=== PATIENT | male | born 1990 | race Caucasian/White ===

== ENCOUNTER 2018-01-14 08:27 | Observation (INO) | payer BC, SELFPAY ==
[2018-01-14] VITALS (13 sets, daily range): BP systolic 101–137; BP diastolic 60–94; PULSE 62–103; RESP 16–24; TEMP 35.6–36.8; O2SAT 95–100; BMI 20.7; BMI 21.8
--- NOTE | 2018-01-14 08:35 | CT_ITS ---
STUDY: CT ABDOMEN AND PELVIS WITHOUT CONTRAST REASON FOR EXAM: Male, 27 years old. RIGHT FLANK RADIATION DOSAGE (If Supplied By Facility): CTDIvol = ( 6.31 ) mGy, DLP = ( 302.88 ) mGycm TECHNIQUE: Transaxial images were obtained from the dome of the diaphragm to the symphysis pubis without oral contrast, and without intravenous contrast. Sagittal and coronal images were reconstructed. Individualized dose optimization techniques were used for this CT. COMPARISON: None. FINDINGS: The visualized lung bases are unremarkable. The visualized portions of the heart are within normal limits. Normal liver. Normal gallbladder and extrahepatic biliary system. Normal spleen. Normal pancreas. Normal bilateral adrenal glands. There is mild hydroureteronephrosis. There is a 4 mm calculus at the distal ureter adjacent to the bladder (axial image #144 series 2) Normal left kidney. Normal visualized stomach. Normal small intestine. Normal colon. The appendix is visualized and appears normal. Normal abdominal aorta. Normal inferior vena cava. Normal retroperitoneum. Normal urinary bladder. Normal abdominal wall. Normal osseous structures. CT/Abdomen/Pelvis without Cont IMPRESSION: 4 mm distal ureteral calculus with mild hydroureteronephrosis on the right. Electronically Signed: Christian Bernabe MD at 9:22 EDT Tel , Service support ,
--- NOTE | 2018-01-14 08:38 | ED.VISSUMM ---
- ER Visit Summary Date of Service: 01/14/18 Chief Complaint: Severe acute right lower back pain radiating anteriorly to the groin History of Present Illness: The patient is a 27 M who was awakened from sleep with acute severe colicky right lower back pain radiating anteriorly to the groin. He complains of minimal testicular pain on the right. He does report nausea and vomiting. He denies dysuria, frequency, urgency or hematuria. He has no history of renal ureterolithiasis. Family history is unknown. There is no history of trauma. He denies fever, chills or night sweats. He has no other complaints. Physical Examination: Vital signs remarkable for slight elevation in blood pressure of 127/75. Patient appears in obvious discomfort. He is slightly pale. Head is atraumatic normocephalic. Pupils are equal round reactive. Extraocular muscles are intact. TMs are pearly white with landmarks noted. Nares patent with no drainage. Posterior pharynx without erythema or exudate. Uvula is midline. There is no dysphonia or dysphasia. Trachea is midline. There is no stridor with auscultation of the neck. Heart is regular without murmur, gallop or rub. S1 and S2 are normal. Lungs are clear to auscultation with good movement of air bilaterally. Abdomen is soft nontender bowel sounds are diminished. There is minimal right CVA tenderness. There is no inguinal lymphadenopathy or hernia. Circumcised with no penile lesion or discharge. No testicular pain or epididymal pain. Testes are descended bilaterally. There is no skin rash or lesions noted. He is alert and oriented ?3 with a nonfocal neurologic exam. Test Results: CT of the abdomen pelvis without contrast reveals a 5 mm right renal calculus and a 5 mm right ureteral calculus proximal mid third with hydroureter hydronephrosis. CBC unremarkable. BMP unremarkable. Urinalysis reveals microscopic hematuria. There is no pyuria and nitrites negative. There is 1+ bacteria. Emergency Department Course and Treatment: IV was established he was treated with 30 mg of Toradol IV push and 4 mg of Zofran IV push. UA was obtained as well as blood work since she has no past medical history and no physician. This was obtained to rule out other causes other than obstructing stone and to evaluate his white count and kidney function. CT of the abdomen and pelvis without contrast was ordered to evaluate for ureterolithiasis with obstruction. Treatment Plan: Patient has received multiple doses of IV morphine. At 1205 when he was reassessed again he was diaphoretic in obvious discomfort. Urologist was paged and will be admitted Disposition: Admit [facility] Impression: 1. Severe pain secondary to obstructing right ureteral stone with hydroureter and hydronephrosis This note was generated with [employer] dictation software. It may contain incorrect words, spelling, and punctuation that were not noted in review of the chart prior to signing ED Disposition - Plan for ED Patient: Chief Complaint: Abd Pain
[2018-01-14] MEDS: 0.9% Normal Saline 1,000 ML 250 ML IV ×2 (08:42→12:50)
[2018-01-14] MEDS: Ketorolac 30 MG/ML Syringe IV (08:43)
[2018-01-14 08:48] LABS: Absolute Lymphocyte Count 4.17 X10^3/ul (0.83-4.51); Absolute Neutrophil Count 4.7 X10^3/uL (2.0-7.7); Basophil# 0.03 X10^3/uL; Basophil% 0.3 % (0-1); Eosinophil# 0.16 X10^3/uL; Eosinophils% 1.6 % (0-5); Hematocrit 42.5 % (40-54); Lymphocyte # 4.17 X10^3/ul (4.0); Lymphocyte % 42.2 % (19-41); Mean Corp Hgb Conc 35.3 g/gl (32-36); Mean Corpuscular Hgb 30.9 pg (27.0-32.0); Mean Corpuscular Volume 87.6 fL (80-94); Mean Platelet Vol. 10.6 fl (6.2-12.0); Monocyte# 0.78 X10^3/uL; Monocyte% 7.9 % (0-10); Neutrophil # 4.71 X10^3/uL (2.7-7.7); Neutrophil % 47.8 % (47-70); Platelet Count 204 K/mm3 (150-450); RBC Distribution Width CV 11.9 % (11.6-14.6); RBC Distribution Width SD 37.8 fl (35.1-43.9); Red Blood Count 4.85 M/mm3 (4.6-6.2); White Blood Count 9.9 K/mm3 (4.4-11.0)
[2018-01-14 08:50] LABS: POSITIVE COUNT NO; POSITIVE DIFFERENTIAL NO; POSITIVE MORPHOLOGY NO
[2018-01-14] MEDS: Morphine 4 MG/ML Syringe IV ×3 (08:55→09:40)
[2018-01-14 08:59] LABS: Anion Gap 12 (5-15); BUN 22 mg/dL (7-18); Calcium,Total 8.8 mg/dL (8.5-10.1); Chloride 106 mmol/L (98-107); Creatinine, Serum 1.05 mg/dL (0.70-1.30); EST Glomerular Filtration Rate 90 mL/min (>60); Est Glom Filt Rate - Afr Amer 109 mL/min (>60); Estimated Creatinine Clearance 104.65 ml/min; Glucose 111 mg/dL (74-106); Potassium 3.6 mmol/L (3.5-5.1); Sodium Level 141 mmol/L (136-145)
[2018-01-14] MEDS: Ondansetron 4 MG/2 ML Vial IV ×2 (09:04→12:51)
[2018-01-14] MEDS: morphine 8 MG/ML Syringe 6 MG IV ×2 (10:33→12:50)
[2018-01-14] MEDS: 0.9% Normal Saline 1,000 ML 999 ML IV (11:00)
[2018-01-14 11:56] LABS: Color, Urine Yellow (Yellow); Glucose, Dipstick Normal (Normal); Leukocyte Esterase-Dipstick 25 /ul (Negative); Nitrite-Dipstick Negative (Negative); Occult Blood-Urine 250 /ul (Negative); Protein-Dipstick 30 mg/dl (Negative); Specific Gravity, Urine 1.015 (1.002-1.030); Urine Clarity Sl. Cloudy (Clear); Urine Urobilinogen 1 mg/dl (Normal); Urine pH 6.5 (5.0 - 8.0)
[2018-01-14 12:02] LABS: Urine Bilirubin Dipstick 1 mg/dL (Negative)
[2018-01-14 12:03] LABS: Ketone-Dipstick 150 mg/dl (Negative)
[2018-01-14 12:06] LABS: Bacteria 1+ /hpf (None Seen); Mucous, Urine 3+ /hpf (<or=2+); Red Blood Cells-Urine 50-100 SEEN /hpf (0-5); Squamous Epithelial Cells - UA 0-5 SEEN /hpf (0-5); White Blood Cells 0-5 SEEN /hpf (0-5)
--- NOTE | 2018-01-14 13:39 | HP.PCM_ITS ---
Problem List (1) Right ureteral calculus Status: Acute History of Present Illness Date of Admission: 01/14/18 Chief Complaint: Right ureteral calculi intractable pain The patient is a 27 year old male who presented to the emergency room today with right severe flank pain, emergency room called me and asked to admit the patient since his pain was intractable after multiple medications was still pale white and in severe pain so he was admitted for pain control planted taken today for cystoscopy and stent placement on the right side. Past Medical History Allergies No Known Allergies Allergy (Verified 01/14/18 08:28) Home Medications: Ambulatory Orders Medication Instructions Recorded NK [NK] 01/14/18 Surgical History: - - Surgery for injury to the rectum Psychiatric History: No pertinent psych hx Lives: Spouse/ Significant Other Smoking Status: Current some day smoker Tobacco Use: Non-smoker Alcohol: None Drugs: None - *Family History Maternal History Items: No pertinent history Review of Systems Constitutional: Denies: Chills, Fever, Weight Change HEENT: Denies: Head Aches, Sinus Congestion, Sinus Drainage Cardiovascular: Denies: Chest Pain, Palpitations Respiratory: Denies: Cough, Shortness of breath at rest, Sputum production Gastrointestinal: Reports: Abdominal Pain. Denies: Nausea, Vomiting Genitourinary: Reports: - - Right flank pain. Denies: Dysuria Musculoskeletal: Denies: Joint Pain, Joint Tenderness Skin: Denies: Rash, Wounds Neurological: Denies: Numbness, Tingling, Focal weakness Psychiatric: Denies: Anxiety, Depression, Homicidal Ideations, Suicidal Ideations Hematologic/ Lymphatic: Denies: Easy Bruising, Easy Bleeding VTE Information - Inpt Only VTE Present on Admission: No VTE Mechan Device Prophylaxis: SCD's - Physical Exam General: Alert, Oriented x3, Cooperative HEENT: Atraumatic, PERRLA, EOMI, Normocephalic Neck: Supple, No JVD, Negative Carotid Bruits Lungs: Clear to auscultation, Normal air movement Cardiovascular: Regular rate, No murmurs Abdomen: Bowel Sounds Present, Soft, Non Tender Extremities: No edema, Capillary Refill Less than 3 Seconds Skin: No rashes, No breakdown Musculoskeletal: No Tenderness to Palpation of Joints or Extremities Neurological: Cranial nerves II-XII grossly intact Psych/Mental Status: Normal Affect, Appropriate Vital Signs Temp Pulse Resp BP Pulse Ox 96.1 F L 81 24 H 137/79 H 100 01/14/18 08:28 01/14/18 12:49 01/14/18 12:49 01/14/18 12:49 01/14/18 12:49 Oxygen Delivery Method Room Air Weight: 69.4 kg Body Mass Index (BMI) 20.7 Laboratory Tests Past 24 Hrs 01/14/18 01/14/18 01/14/18 08:35 08:35 11:45 WBC 9.9 RBC 4.85 Hgb 15.0 Hct 42.5 MCV 87.6 MCH 30.9 MCHC 35.3 RDW 11.9 RDW Differential 37.8 Plt Count 204 MPV 10.6 Immature Gran % (Auto) 0.200 Neut % (Auto) 47.8 Lymph % (Auto) 42.2 H [place] % (Auto) 7.9 Eos % (Auto) 1.6 Baso % (Auto) 0.3 Absolute Neuts (auto) 4.7 Absolute Lymphs (auto) 4.17 Total Counted Not Reportable Sodium 141 Potassium 3.6 Chloride 106 Carbon Dioxide 23.0 Anion Gap 12 BUN 22 H Creatinine 1.05 Estim Creat Clear Calc 104.65 Est GFR (MDRD) Af Amer 109 Est GFR (MDRD) Non-Af 90 BUN/Creatinine Ratio 21.0 H Glucose 111 H Calcium 8.8 Urine Color Yellow Urine Clarity Sl. Cloudy Urine pH 6.5 Ur Specific [place] 1.015 Urine Protein 30 H Urine Glucose (UA) Normal Urine Ketones 150 H Urine Occult Blood 250 H Urine Nitrite Negative Urine Bilirubin 1 H Urine Urobilinogen 1 H Ur Leukocyte Esterase 25 H Urine RBC 50-100 SEEN Urine WBC 0-5 SEEN Ur Squamous Epith Cells 0-5 SEEN Urine Bacteria 1+ Urine Mucus 3+ Assessment/Plan All Active Problems Right ureteral calculus (Acute) Admit for observation for kidney stone, plan to take today to surgery for cystoscopy right stent placement probably discharge after this with pain medicine and Pyridium
[2018-01-14] MEDS: Lidocaine Jelly 2% 20 ML Syringe (URO-JET) 20 APPLIC (14:23)
--- NOTE | 2018-01-14 14:33 | OP.PCM_ITS ---
Problem List (1) Right ureteral calculus Status: Acute Report of Operation Date of Procedure: 01/14/18 Pre-Operative Diagnosis: Right obstructive ureteral calculi Post-Operative Diagnosis: Same Surgery/Procedure Performed:: Cystoscopy right retrograde pyelogram right stent placement Description of Surgical Findings:: 27-year-old male taken back to the operating room after smooth induction of anesthesia he was placed in dorsal lithotomy position with the legs in stirrups , penis and testicles were prepped and draped in usual sterile fashion, went into the bladder through the urethra with a 21 [place] rigid cystourethroscope, the entire length the urethra was normal, the prostate was nonobstructive normal , inside the bladder the trigone on the right side was inflamed and enlarged left side is normal cannulated the right ureteral orifice with a Glidewire advanced a wire up into the kidney, placed Pollack catheter, the retrograde Polygram, and then after that advanced a stent on the right side and place a stent in good position, drain the bladder and the patient anesthetic was reversed taken back to PACU in good condition. Type of Anesthesia:: Local MAC Drains: stent - Admit VTE Documentation VTE Present on Admission: No VTE Mechan Device Prophylaxis: SCD's
--- NOTE | 2018-01-14 14:37 | PCM.DC.URO ---
Discharge Diet: Light diet - advance as tolerated Discharge Activity: Return to Normal Activity Allergies/Adverse Reactions: Allergies No Known Allergies Allergy (Verified 01/14/18 08:28) Medications to take at Discharge Hydrocodone/Acetaminophen [[place] 5-325 Tablet] 1 ea PO Q4H PRN PRN 7 Days #20 tab 01/14/18 Phenazopyridine HCl [Pyridium] 100 mg PO TID PRN PRN #20 tab 01/14/18 The following prescriptions were given: Hydrocodone/Acetaminophen [[place] 5-325 Tablet] 1 ea PO Q4H PRN PRN 7 Days #20 tab PRN Reason: Pain Phenazopyridine HCl [Pyridium] 100 mg PO TID PRN PRN #20 tab PRN Reason: burning, stent pain Primary Care Physician: Care Physician,No Primary [Primary Care Provider] - Test Results: Test results from this visit will be discussed in further detail at your follow-up appointment, if applicable. Please Follow Up With: Vincent Mohan MD When: please call to make appt.
== END 2018-01-14 18:04 | disposition home or self-care (01) ==
LOC: ED 09:17 → MS3 13:53
PROVIDERS: Admitting Provider Urology; Emergency Provider Emergency Medicine; Visit Provider Urology
PROC: (CPT 52332; principal; 2018-01-14 14:00)
DX: N13.2 Hydronephrosis with renal and ureteral calculous obstruction (principal); R31.29 Other microscopic hematuria
CPT/HCPCS: 00910; 52332; 74176; 76000; 80048; 81001; 85025; 96374; 96375; 96376; 99282; J7030; J7120; A4216; C1769; C2617; J2405

== ENCOUNTER 2018-01-15 19:55 | Inpatient (IN) | payer BC, SELFPAY ==
[2018-01-15 19:56] VITALS: BP 142/94; PULSE 84; RESP 18; TEMP 37.2; O2SAT 98; BMI 22.3
[2018-01-15] MEDS: HYDROmorphone 1 MG/ML Syringe IV ×3 (20:24→23:05)
[2018-01-15] MEDS: Ketorolac 30 MG/ML Syringe IV (20:24)
[2018-01-15] MEDS: Ondansetron 4 MG/2 ML Vial IV (20:24)
--- NOTE | 2018-01-15 20:37 | CT_ITS ---
STUDY: CT ABDOMEN AND PELVIS WITHOUT CONTRAST REASON FOR EXAM: Male, 27 years old. Right flank pain, right ureteral stent in place RADIATION DOSAGE (If Supplied By Facility): CTDIvol = ( 6.44 ) mGy, DLP = ( 327.98 ) mGycm TECHNIQUE: Transaxial images were obtained from the dome of the diaphragm to the symphysis pubis without oral contrast, and without intravenous contrast. Sagittal and coronal images were reconstructed. Individualized dose optimization techniques were used for this CT. COMPARISON: Previous study of 01/14/2018 FINDINGS: The visualized lung bases are unremarkable. The visualized portions of the heart are within normal limits. Normal liver. Normal gallbladder and extrahepatic biliary system. Normal spleen. Normal pancreas. Normal bilateral adrenal glands. Normal right kidney. There is no right hydronephrosis or nephrolithiasis. There is a right ureteral stent appearing in adequate position. There is a 3 mm calculus in the distal right ureter proximal to the UVJ adjacent to the distal stent. Normal left kidney. Normal visualized stomach. Normal small intestine. Normal colon. The appendix is visualized and appears normal. Normal abdominal aorta. Normal inferior vena cava. Normal retroperitoneum. Normal urinary bladder. The prostate, seminal vesicles, and seminal vesicle angles appear normal. There is a small amount of free fluid in the deep left pelvis, new in the interval. There is a small umbilical hernia containing fat. Normal osseous structures. CT/Abdomen/Pelvis without Cont IMPRESSION: Right-sided ureteral stent seen appearing in adequate position. There is a 3 mm calculus in the distal right ureter adjacent to the stent just proximal to the UVJ. There is no hydronephrosis or nephrolithiasis. There is a small amount of free fluid in the deep left pelvis representing a new interval finding. Small fat-containing umbilical hernia. Electronically Signed: Karan Krause MD at 21:16 EDT , Service support ,
[2018-01-15] MEDS: 0.9% Normal Saline 1,000 ML 1000 ML IV (20:50)
[2018-01-15 20:55] LABS: Absolute Lymphocyte Count 3.73 X10^3/ul (0.83-4.51); Absolute Neutrophil Count 13.6 X10^3/uL (2.0-7.7); Basophil# 0.01 X10^3/uL; Basophil% 0.1 % (0-1); Eosinophil# 0.01 X10^3/uL; Eosinophils% 0.1 % (0-5); Hematocrit 37.3 % (40-54); Hemoglobin 13.4 g/dl (13.0-16.5); Lymphocyte # 3.73 X10^3/ul (4.0); Lymphocyte % 20.3 % (19-41); Mean Corp Hgb Conc 35.9 g/gl (32-36); Mean Corpuscular Volume 86.3 fL (80-94); Mean Platelet Vol. 11.5 fl (6.2-12.0); Monocyte# 0.98 X10^3/uL; Monocyte% 5.3 % (0-10); Neutrophil # 13.58 X10^3/uL (2.7-7.7); Platelet Count 181 K/mm3 (150-450); RBC Distribution Width CV 11.9 % (11.6-14.6); RBC Distribution Width SD 37.7 fl (35.1-43.9); Red Blood Count 4.32 M/mm3 (4.6-6.2); White Blood Count 18.3 K/mm3 (4.4-11.0)
[2018-01-15 20:56] LABS: POSITIVE COUNT NO; POSITIVE DIFFERENTIAL NO; POSITIVE MORPHOLOGY NO
[2018-01-15 21:10] LABS: Anion Gap 8 (5-15); BUN 16 mg/dL (7-18); BUN/Creat Ratio 15.1 RATIO (10-20); Calcium,Total 8.5 mg/dL (8.5-10.1); Chloride 109 mmol/L (98-107); Creatinine, Serum 1.06 mg/dL (0.70-1.30); EST Glomerular Filtration Rate 89 mL/min (>60); Est Glom Filt Rate - Afr Amer 108 mL/min (>60); Estimated Creatinine Clearance 108.41 ml/min; Glucose 87 mg/dL (74-106); Potassium 3.6 mmol/L (3.5-5.1); Sodium Level 142 mmol/L (136-145)
[2018-01-15 21:19] LABS: Mucous, Urine 0 SEEN /hpf (<or=2+); Squamous Epithelial Cells - UA 0 SEEN /hpf (0-5)
[2018-01-15 21:24] LABS: Color, Urine Amber (Yellow); Glucose, Dipstick Normal (Normal); Ketone-Dipstick Negative (Negative); Leukocyte Esterase-Dipstick 100 /ul (Negative); Nitrite-Dipstick Positive (Negative); Occult Blood-Urine 250 /ul (Negative); Protein-Dipstick 100 mg/dl (Negative); Urine Clarity Cloudy (Clear); Urine Urobilinogen 8 mg/dl (Normal)
[2018-01-15 21:34] LABS: Urine Bilirubin Dipstick 3 mg/dL (Negative)
[2018-01-15 21:35] LABS: Bacteria RARE /hpf (None Seen); Red Blood Cells-Urine > 100 SEEN /hpf (0-5); White Blood Cells 0-5 SEEN /hpf (0-5)
[2018-01-15] MEDS: Ceftriaxone 1 GM/50 ML BAG IV (21:53)
[2018-01-15 21:56] VITALS: BP 124/78; PULSE 77; RESP 16; O2SAT 96
--- NOTE | 2018-01-15 22:33 | ED.VISSUMM ---
- ER Visit Summary Date of Service: 01/15/18 Chief Complaint: Right flank pain History of Present Illness: The patient is a 27 M who presents with severe right flank pain. He initially began to have pain it yesterday morning. He was seen in the ER and diagnosed a kidney stone. He was admitted and had a ureteral stent placed. He was discharged. He states his pain became very severe after discharge. He had some nausea and vomiting last night but none today. He also reports dysuria urinary frequency urinary urgency. No fevers. Physical Examination: Afebrile vitals are stable Patient appears to be in significant pain Heart is regular rate and rhythm Lungs are clear Abdomen soft nondistended he does have some right lower abdominal tenderness no flank or CVA tenderness Alert Test Results: Labs notable for white blood cell count 18.3. Urinalysis shows 100 leukocyte esterase positive nitrates greater than [address] of flank shows ureteral stent in good position with a small amount of pelvic free fluid and 3 mm ureteral calculus. Emergency Department Course and Treatment: Patient presented in severe pain. He was given IV fluids Dilaudid Toradol and Zofran. He appeared slightly more comfortable with it was still complaining of moderate pain and was given a second dose of IV Dilaudid with significant improvement. His urinalysis was nitrite positive. Given his significant leukocytosis this is concerning for infection. He was given IV Rocephin. I spoke to Dr. Pro falguni Irwin. Given that the patient already has a stent he asked that the patient be admitted under the hospitalist service. Treatment Plan: [] Disposition: Admit Impression: Ureterolithiasis UTI This note was generated with [employer] dictation software. It may contain incorrect words, spelling, and punctuation that were not noted in review of the chart prior to signing ED Disposition - Plan for ED Patient: Chief Complaint: Flank Pain Referrals: Care Physician,No Primary [Primary Care Provider] -
--- NOTE | 2018-01-15 22:48 | PCM.HP.STD ---
Problem List (1) UTI (urinary tract infection) Status: Acute (2) Right ureteral calculus Status: Acute History of Present Illness Date of Admission: 01/15/18 Chief Complaint: right abdominal pain The patient is a 27 year old male patient diagnosed with 3mm kidney stone yesterday for which he received a ureteral stent. Today he presents with 7/10 pain worse with urination. He has an elevated WBC count of 18,000 as well. He has nausea with the pain but otherwise says he has been hungry. The patient will be admitted and antibiotics given for UTI. Urology will be consulted as CT shows the stone to be in the distal ureter adjacent to the stent. Past Medical History Allergies No Known Allergies Allergy (Verified 01/15/18 19:58) Home Medications: Ambulatory Orders Medication Instructions Recorded Hydrocodone/Acetaminophen [[place] 1 ea PO Q4H PRN PRN 7 Days #20 tab 01/14/18 5-325 Tablet] Phenazopyridine HCl [Pyridium] 100 mg PO TID PRN PRN #20 tab 01/14/18 Surgical History: - - Surgery for injury to the rectum Psychiatric History: No pertinent psych hx Smoking Status: Former smoker - *Family History Maternal History Items: No pertinent history Review of Systems Constitutional: Reports: Fever. Denies: Chills, Weight Change HEENT: Denies: Head Aches, Sinus Congestion, Sinus Drainage Cardiovascular: Denies: Chest Pain, Palpitations Respiratory: Denies: Cough, Shortness of breath at rest, Sputum production Gastrointestinal: Reports: Abdominal Pain, - - right flank pain. Denies: Nausea, Vomiting Genitourinary: Reports: Dysuria, Frequency, Hematuria, Urgency Musculoskeletal: Denies: Joint Pain, Joint Tenderness Skin: Denies: Rash, Wounds Neurological: Denies: Numbness, Tingling, Focal weakness Psychiatric: Denies: Anxiety, Depression, Homicidal Ideations, Suicidal Ideations Hematologic/ Lymphatic: Denies: Easy Bruising, Easy Bleeding VTE Information - Inpt Only VTE Present on Admission: No VTE Mechan Device Prophylaxis: SCD's VTE Pharm Prophylaxis ordered?: No Patient Problems: Active and Suspected Problems UTI (urinary tract infection) (Acute) - Physical Exam General: Alert, Oriented x3, Cooperative HEENT: Atraumatic, Normocephalic Neck: Supple, Negative Carotid Bruits Lungs: Clear to auscultation, Normal air movement, No rhonchi, No wheeze, No rales Cardiovascular: Regular rate, Regular Rhythm, Normal S1, Normal S2, No murmurs Abdomen: Bowel Sounds Present, Non Tender, Tender, - - +CVA right Extremities: No edema, Capillary Refill Less than 3 Seconds Skin: No rashes, No breakdown Musculoskeletal: No Tenderness to Palpation of Joints or Extremities Neurological: Neuro grossly intact Psych/Mental Status: Normal Affect, Appropriate Vital Signs Temp Pulse Resp BP Pulse Ox 99.0 F 77 16 124/78 H 96 01/15/18 19:56 01/15/18 21:56 01/15/18 21:56 01/15/18 21:56 01/15/18 21:56 Oxygen Delivery Method Room Air Weight: 160 lb Body Mass Index (BMI) 22.3 Laboratory Tests Past 24 Hrs 01/15/18 01/15/18 01/15/18 20:25 20:25 21:10 WBC 18.3 H RBC 4.32 L Hgb 13.4 Hct 37.3 L MCV 86.3 MCH 31.0 MCHC 35.9 RDW 11.9 RDW Differential 37.7 Plt Count 181 MPV 11.5 Immature Gran % (Auto) 0.200 Neut % (Auto) 74.0 H Lymph % (Auto) 20.3 [place] % (Auto) 5.3 Eos % (Auto) 0.1 Baso % (Auto) 0.1 Absolute Neuts (auto) 13.6 H Absolute Lymphs (auto) 3.73 Total Counted Not Reportable Sodium 142 Potassium 3.6 Chloride 109 H Carbon Dioxide 25.0 Anion Gap 8 BUN 16 Creatinine 1.06 Estim Creat Clear Calc 108.41 Est GFR (MDRD) Af Amer 108 Est GFR (MDRD) Non-Af 89 BUN/Creatinine Ratio 15.1 Glucose 87 Calcium 8.5 Urine Color [place] Urine Clarity Cloudy Urine pH 7.0 Ur Specific [place] 1.010 Urine Protein 100 H Urine Glucose (UA) Normal Urine Ketones Negative Urine Occult Blood 250 H Urine Nitrite Positive H Urine Bilirubin 3 H Urine Urobilinogen 8 H Ur Leukocyte Esterase 100 H Urine RBC > 100 SEEN Urine WBC 0-5 SEEN Ur Squamous Epith Cells 0 SEEN Urine Bacteria RARE Urine Mucus 0 SEEN Assessment/Plan All Active Problems Right ureteral calculus (Acute) UTI (urinary tract infection) (Acute) [facility] q [facility] - consult Dr Mohan - morphine 4mg IV q 2 hrs prn pain - zofran 4mg IV q 8hrs prn - NPO at midnight - Normal saline 100cc/hour Code Visit Inpatient E&M: 35860 Init Hosp L3
[2018-01-15 22:49] VITALS: BP 124/78; PULSE 77; RESP 16; O2SAT 98
--- NOTE | 2018-01-15 22:54 | HP.PCM_ITS ---
Problem List (1) UTI (urinary tract infection) Status: Acute (2) Right ureteral calculus Status: Acute History of Present Illness Date of Admission: 01/15/18 Chief Complaint: right abdominal pain The patient is a 27 year old male patient diagnosed with 3mm kidney stone yesterday for which he received a ureteral stent. Today he presents with 7/10 pain worse with urination. He has an elevated WBC count of 18,000 as well. He has nausea with the pain but otherwise says he has been hungry. The patient will be admitted and antibiotics given for UTI. Urology will be consulted as CT shows the stone to be in the distal ureter adjacent to the stent. Past Medical History Allergies No Known Allergies Allergy (Verified 01/15/18 19:58) Home Medications: Ambulatory Orders Medication Instructions Recorded Hydrocodone/Acetaminophen [[place] 1 ea PO Q4H PRN PRN 7 Days #20 tab 01/14/18 5-325 Tablet] Phenazopyridine HCl [Pyridium] 100 mg PO TID PRN PRN #20 tab 01/14/18 Surgical History: - - Surgery for injury to the rectum Psychiatric History: No pertinent psych hx Smoking Status: Former smoker - *Family History Maternal History Items: No pertinent history Review of Systems Constitutional: Reports: Fever. Denies: Chills, Weight Change HEENT: Denies: Head Aches, Sinus Congestion, Sinus Drainage Cardiovascular: Denies: Chest Pain, Palpitations Respiratory: Denies: Cough, Shortness of breath at rest, Sputum production Gastrointestinal: Reports: Abdominal Pain, - - right flank pain. Denies: Nausea , Vomiting Genitourinary: Reports: Dysuria, Frequency, Hematuria, Urgency Musculoskeletal: Denies: Joint Pain, Joint Tenderness Skin: Denies: Rash, Wounds Neurological: Denies: Numbness, Tingling, Focal weakness Psychiatric: Denies: Anxiety, Depression, Homicidal Ideations, Suicidal Ideations Hematologic/ Lymphatic: Denies: Easy Bruising, Easy Bleeding VTE Information - Inpt Only VTE Present on Admission: No VTE Mechan Device Prophylaxis: SCD's VTE Pharm Prophylaxis ordered?: No Patient Problems: Active and Suspected Problems UTI (urinary tract infection) (Acute) - Physical Exam General: Alert, Oriented x3, Cooperative HEENT: Atraumatic, Normocephalic Neck: Supple, Negative Carotid Bruits Lungs: Clear to auscultation, Normal air movement, No rhonchi, No wheeze, No rales Cardiovascular: Regular rate, Regular Rhythm, Normal S1, Normal S2, No murmurs Abdomen: Bowel Sounds Present, Non Tender, Tender, - - +CVA right Extremities: No edema, Capillary Refill Less than 3 Seconds Skin: No rashes, No breakdown Musculoskeletal: No Tenderness to Palpation of Joints or Extremities Neurological: Neuro grossly intact Psych/Mental Status: Normal Affect, Appropriate Vital Signs Temp Pulse Resp BP Pulse Ox 99.0 F 77 16 124/78 H 96 01/15/18 19:56 01/15/18 21:56 01/15/18 21:56 01/15/18 21:56 01/15/18 21:56 Oxygen Delivery Method Room Air Weight: 160 lb Body Mass Index (BMI) 22.3 Laboratory Tests Past 24 Hrs 01/15/18 01/15/18 01/15/18 20:25 20:25 21:10 WBC 18.3 H RBC 4.32 L Hgb 13.4 Hct 37.3 L MCV 86.3 MCH 31.0 MCHC 35.9 RDW 11.9 RDW Differential 37.7 Plt Count 181 MPV 11.5 Immature Gran % (Auto) 0.200 Neut % (Auto) 74.0 H Lymph % (Auto) 20.3 [place] % (Auto) 5.3 Eos % (Auto) 0.1 Baso % (Auto) 0.1 Absolute Neuts (auto) 13.6 H Absolute Lymphs (auto) 3.73 Total Counted Not Reportable Sodium 142 Potassium 3.6 Chloride 109 H Carbon Dioxide 25.0 Anion Gap 8 BUN 16 Creatinine 1.06 Estim Creat Clear Calc 108.41 Est GFR (MDRD) Af Amer 108 Est GFR (MDRD) Non-Af 89 BUN/Creatinine Ratio 15.1 Glucose 87 Calcium 8.5 Urine Color [place] Urine Clarity Cloudy Urine pH 7.0 Ur Specific [place] 1.010 Urine Protein 100 H Urine Glucose (UA) Normal Urine Ketones Negative Urine Occult Blood 250 H Urine Nitrite Positive H Urine Bilirubin 3 H Urine Urobilinogen 8 H Ur Leukocyte Esterase 100 H Urine RBC > 100 SEEN Urine WBC 0-5 SEEN Ur Squamous Epith Cells 0 SEEN Urine Bacteria RARE Urine Mucus 0 SEEN Assessment/Plan All Active Problems Right ureteral calculus (Acute) UTI (urinary tract infection) (Acute) [facility] consult Dr Mohan - morphine 4mg IV q 2 hrs prn pain - zofran 4mg IV q 8hrs prn - NPO at midnight - Normal saline 100cc/hour Code Visit Inpatient E&M: 90283 Init Hosp L3
[2018-01-15 23:06] VITALS: RESP 20
[2018-01-15 23:25] VITALS: BMI 22.6
[2018-01-15 23:31] VITALS: BMI 22.6
[2018-01-15 23:34] VITALS: BP 121/76; PULSE 76; RESP 16; TEMP 36.9; O2SAT 96
[2018-01-15] MEDS: 0.9% Normal Saline 1,000 ML 100 ML IV (23:51)
[2018-01-16] VITALS (9 sets, daily range): BP systolic 115–133; BP diastolic 65–92; PULSE 55–82; RESP 16–20; TEMP 36.3–37.2; O2SAT 94–100; BMI 22.6
--- NOTE | 2018-01-16 | CALC_PTH ---
PATIENT: YOSELIN SCHREIBER LOC: MS2 U#:[id number] AGE/SX: 27/M [place] [facility] [id number]01/15/[address]: Dr. Gala Schmitz MD : 1990 BED: 1 DIS: 01/16/2018 SPEC #: [id number] RECD: 01/16/18 14:22 STATUS: DARIUSZ PEACE #: [id number] KATE: 01/16/18 00:[address]: Vincent Mohan DEPT: SURGICAL PATHOLOGY RECD BY: Hollis Macdonald ENTERED: 01/16/18 14:23 SP TYPE: Calculi OTHR DR: MD Dr. Vincent Ngo MD Dr. Paul Nielsen, MD No Primary Care Phys Tissues: CALCULI Procedures: Surgery Specimen Level I Comments: @ Ordering doctor for KOSTA edited from to @ by RGOOD at 01/17/18 0809 @ Submitting doctor edited from to @ by RGOOD at 01/17/18 0809 HEADER OPERATION: Cysto, ureteroscopy, basket extraction of stone PRE-OP DIAGNOSIS: Right ureteral calculus TISSUE SUBMITTED: Right ureteral calculus (stone for analysis) GROSS DIAGNOSIS Right ureteral calculus, removal: Unremarkable calculus (gross diagnosis only). AM:priscilla 01/17/18 COMMENT The calculus is submitted in its entirety for chemical stone analysis. The results from this study will be reported separately. GROSS DESCRIPTION Received without fixative labeled with the patient name and designated right ureteral calculus is a specimen that consists of an irregular fragment of dark ball calculus measuring 0.3 x 0.2 x 0.1 cm. The calculus is submitted in its entirety for chemical stone analysis. / AM:priscilla 01/16/18 CPT: 03631
[2018-01-16] MEDS: 0.9% NaCl Peripheral Flush Adult/Peds IV ×2 (02:13→14:07)
[2018-01-16] MEDS: Morphine 4 MG/ML Syringe IV ×3 (02:14→06:42)
[2018-01-16 06:45] LABS: Absolute Lymphocyte Count 4.48 X10^3/ul (0.83-4.51); Absolute Neutrophil Count 5.9 X10^3/uL (2.0-7.7); Basophil# 0.01 X10^3/uL; Basophil% 0.1 % (0-1); Eosinophil# 0.02 X10^3/uL; Eosinophils% 0.2 % (0-5); Hematocrit 35.1 % (40-54); Hemoglobin 12.5 g/dl (13.0-16.5); Lymphocyte # 4.48 X10^3/ul (4.0); Lymphocyte % 40.1 % (19-41); Mean Corp Hgb Conc 35.6 g/gl (32-36); Mean Corpuscular Hgb 31.4 pg (27.0-32.0); Mean Corpuscular Volume 88.2 fL (80-94); Monocyte# 0.69 X10^3/uL; Monocyte% 6.2 % (0-10); Neutrophil # 5.94 X10^3/uL (2.7-7.7); Neutrophil % 53.2 % (47-70); Platelet Count 144 K/mm3 (150-450); RBC Distribution Width CV 11.7 % (11.6-14.6); RBC Distribution Width SD 36.9 fl (35.1-43.9); Red Blood Count 3.98 M/mm3 (4.6-6.2); White Blood Count 11.2 K/mm3 (4.4-11.0)
[2018-01-16 06:49] LABS: POSITIVE COUNT NO; POSITIVE DIFFERENTIAL NO; POSITIVE MORPHOLOGY NO
--- NOTE | 2018-01-16 06:54 | PCM.CONS.U ---
Reason for Consult Date of Consultation: 01/15/18 Reason for Consultation: Intractable pain UTI and elevated white blood count status post stent History of Present Illness: The patient is a 27 year old male who presented with a stone obstructing the ureter and underwent cystoscopy and stent placement returns back to the hospital with severe pain probably mostly from the stent irritation pain with urination he also has a slightly elevated white count he clinically does not look septic or sick just uncomfortable from the stent and the stone. Planted taken to surgery today to resolve the stone and remove the stent Past Medical History Allergies No Known Allergies Allergy (Verified 01/15/18 19:58) Home Medications: Ambulatory Orders Medication Instructions Recorded Hydrocodone/Acetaminophen [[place] 1 ea PO Q4H PRN PRN 7 Days #20 tab 01/14/18 5-325 Tablet] Phenazopyridine HCl [Pyridium] 100 mg PO TID PRN PRN #20 tab 01/14/18 Surgical History: no surgical history, - - Surgery for injury to the rectum Psychiatric History: No pertinent psych hx Lives: Alone Smoking Status: Former smoker Tobacco Use: Non-smoker Alcohol: None - *Family History Maternal History Items: No pertinent history Review of Systems Constitutional: Reports: Fever HEENT: Denies: Head Aches, Sinus Congestion, Sinus Drainage Cardiovascular: Denies: Chest Pain, Palpitations Respiratory: Denies: Cough, Shortness of breath at rest, Sputum production Gastrointestinal: Reports: Abdominal Pain. Denies: Nausea, Vomiting Genitourinary: Reports: Dysuria, Frequency, Urgency Musculoskeletal: Denies: Joint Pain, Joint Tenderness Skin: Denies: Rash, Wounds Neurological: Denies: Numbness, Tingling, Focal weakness Psychiatric: Denies: Anxiety, Depression, Homicidal Ideations, Suicidal Ideations Hematologic/ Lymphatic: Denies: Easy Bruising, Easy Bleeding Physical Exam - Physical Exam Vital Signs Temp 98.0 F 01/16/18 04:25 Pulse 82 01/16/18 04:25 Resp 20 H 01/16/18 04:25 BP 121/92 H 01/16/18 04:25 Pulse Ox 100 01/16/18 04:25 Intake & Output 01/14/18 01/15/18 01/16/18 23:59 23:59 23:59 Intake Total 619 / 619 Output Total 350 / 350 Balance 269 / 269 Weight: 73.4 kg Intake: IV fluid/meds 619 / 619 Output: Urine 350 / 350 General: Alert, Oriented x3 HEENT: Atraumatic Oral: Moist Mucosa Neck: Supple Lungs: Normal air movement Cardiovascular: Regular rate Abdomen: Bowel Sounds Present, Soft Laboratory Tests Past 24 Hrs 01/16/18 01/16/18 06:32 06:32 WBC 11.2 H RBC 3.98 L Hgb 12.5 L Hct 35.1 L MCV 88.2 MCH 31.4 MCHC 35.6 RDW 11.7 RDW Differential 36.9 Plt Count 144 L MPV 11.0 Immature Gran % (Auto) 0.200 Neut % (Auto) 53.2 Lymph % (Auto) 40.1 [place] % (Auto) 6.2 Eos % (Auto) 0.2 Baso % (Auto) 0.1 Absolute Neuts (auto) 5.9 Absolute Lymphs (auto) 4.48 Total Counted Not Reportable Sodium Pending Potassium Pending Chloride Pending Carbon Dioxide Pending Anion Gap Pending BUN Pending Creatinine Pending Est GFR (MDRD) Af Amer Pending Est GFR (MDRD) Non-Af Pending BUN/Creatinine Ratio Pending Glucose Pending Calcium Pending Assessment/Plan All Active Problems Right ureteral calculus (Acute) UTI (urinary tract infection) (Acute) We will add him onto the schedule today for ureteroscopy basket extraction of stone and removal of the stent. At the keep the patient hospital day or 2 after this saw the patient this morning is agreeable told to be n.p.o. for procedure.
[2018-01-16 07:02] LABS: Anion Gap 6 (5-15); BUN 16 mg/dL (7-18); BUN/Creat Ratio 17.2 RATIO (10-20); Calcium,Total 7.8 mg/dL (8.5-10.1); Chloride 111 mmol/L (98-107); Creatinine, Serum 0.93 mg/dL (0.70-1.30); EST Glomerular Filtration Rate 104 mL/min (>60); Est Glom Filt Rate - Afr Amer 126 mL/min (>60); Estimated Creatinine Clearance 124.96 ml/min; Glucose 94 mg/dL (74-106); Potassium 3.7 mmol/L (3.5-5.1); Sodium Level 145 mmol/L (136-145)
--- NOTE | 2018-01-16 08:02 | PCM.PN.HOSP ---
Patient Problems: Active and Suspected Problems UTI (urinary tract infection) (Acute) Subjective: Patient with ongoing severe right flank pain following admission with nausea without emesis. Urology evaluation this morning with planned operative intervention today with retrieval of stone and removal of stent with possible replacement. Urinalysis concerning for infection, Ucx requested from ED UA and continued on rocephin. Patient denies fevers, chills, emesis, chest pain or dyspnea. Objective: Physical Examination: General: awake, alert, oriented x 3 and cooperative, laying in bed, recent pain regimen, still ongoing discomfort noted. Skin: normal color, turgor, no icterus, cyanosis. HEENT: AT/NC, EOMI, PERRLA, mildly dry MM. Lungs: CTA bilaterally, moderate effort, mild decrease BL bases, no rales, ronchi or wheezing. Heart: Regular rate and rhythm; no gallop, rub audible. Abdomen: soft, ongoing R flank discomfort and R sided abdominal palpation, no rebound, ND, decreased BS. Extremities: no cyanosis, clubbing, or edema. Neurological: patient awake, alert, oriented x 3; cognitive function intact; pupils equally reactive to light and accomodation; cranial nerves II-XII grossly normal, moving all 4 extremities, no focal deficits, strength moderately to severely globally decreased secondary to acute presentation, pain. Psychiatric: affect appears fatigued, strained, no acute evidence of depressive or anxiety feelings. Vitals/I&O's: Vital Signs Temp Pulse Resp BP Pulse Ox 98.0 F 82 20 H 121/92 H 100 01/16/18 04:25 01/16/18 04:25 01/16/18 04:25 01/16/18 04:25 01/16/18 04:25 Oxygen Delivery Method Room Air Weight: 161 lb 13.109 oz Body Mass Index (BMI) 22.6 Intake and Output for Last 24 Hours 01/14/18 01/15/18 01/16/18 23:59 23:59 23:59 Intake Total 619 / 619 Output Total 350 / 350 Balance 269 / 269 Laboratory Results 01/16/18 06:32: WBC 11.2 H, RBC 3.98 L, Hgb 12.5 L, Hct 35.1 L, MCV 88.2, MCH 31.4, MCHC 35.6, RDW 11.7, RDW Differential 36.9, Plt Count 144 L, MPV 11.0, Immature Gran % (Auto) 0.200, Neut % (Auto) 53.2, Lymph % (Auto) 40.1, [place] % (Auto) 6.2, Eos % (Auto) 0.2, Baso % (Auto) 0.1, Absolute Neuts (auto) 5.9, Absolute Lymphs (auto) 4.48, Total Counted Not Reportable 01/16/18 06:32: Sodium 145, Potassium 3.7, Chloride 111 H, Carbon Dioxide 28.0, Anion Gap 6, BUN 16, Creatinine 0.93, Estim Creat Clear Calc 124.96, Est GFR (MDRD) Af Amer 126, Est GFR (MDRD) Non-Af 104, BUN/Creatinine Ratio 17.2, Glucose 94, Calcium 7.8 L Current Medications Sodium Chloride () 1,000 mls @ 100 mls/hr IV .Q10H RICKY Last Admin: 01/15/18 23:51 Dose: 100 mls/hr Ceftriaxone Sodium (Rocephin) 1 gm in 50 mls @ 100 mls/hr IV Q24 RICKY Sodium Chloride () 250 mls @ 15 mls/hr IV .[id number] PRN PRN Reason: SALINE FLUSH Magnesium Hydroxide (Milk Of Magnesia) 30 ml PO DAILY PRN PRN PRN Reason: Constipation Morphine Sulfate () 4 mg IV Q2H PRN PRN PRN Reason: SEVERE PAIN (6-10/10) Last Admin: 01/16/18 06:42 Dose: 4 mg Ondansetron HCl (Zofran) 4 mg IV Q8H PRN PRN PRN Reason: Nausea Sodium Chloride () 5 - 30 ml IV UD PRN PRN Reason: SALINE FLUSH Last Admin: 01/16/18 02:13 Dose: 10 ml Medical Necessity - Tobacco Use Smoking Status: Former smoker Tobacco Use: Non-smoker Assessment/Plan All Active Problems Right ureteral calculus (Acute) UTI (urinary tract infection) (Acute) The patient is a 27 y/o M w/ PMHx: Nephrolithiasis w/ prior R Ureteral Stent placement who presents to the [facility] ED on 01/15/18 w/ onset of worsening R flank pain and severe dysuria in addition to nausea. (1) Acute Flank Pain, secondary to Acute Nephrolithiasis, Acute UTI: WBC w/ 18.3 w/ L shift, low grade T, UA remarkable w/ pending UCx requested from original UA, CT Abd obtained w/ right-sided ureteral stents in adequate position with a 3 mm calculus in the distal right ureter adjacent to the stent just proximal to the UVJ with no hydronephrosis or further nephrolithiasis with small amount of free fluid in the deep left pelvis, small fat-containing umbilical hernia. Admitted to DC, maintained on hydration, maintain on IV Rocephin antiobitic therapy pending UCx, maintain NPO for ntervention, Famotidine, liberalize pain regimen given ongoing severe pain w/ IV/Oral regimen, scheduled toradol in addition given appropriate renal Fx, PRN anti-emetics, monitor I&Os. Given size of calculus and near stent, Urology consulted for intervention today. (2) Former Tobacco use: Encourage continued cessation. (3) DVT Prophylaxis: TEDs, low risk, ambulation encouraged. Code Visit Inpatient E&M: 30421 Subs Hosp L2
--- NOTE | 2018-01-16 08:10 | PN_ITS ---
Patient Problems: Active and Suspected Problems UTI (urinary tract infection) (Acute) Subjective: Patient with ongoing severe right flank pain following admission with nausea without emesis. Urology evaluation this morning with planned operative intervention today with retrieval of stone and removal of stent with possible replacement. Urinalysis concerning for infection, Ucx requested from ED UA and continued on rocephin. Patient denies fevers, chills, emesis, chest pain or dyspnea. Objective: Physical Examination: General: awake, alert, oriented x 3 and cooperative, laying in bed, recent pain regimen, still ongoing discomfort noted. Skin: normal color, turgor, no icterus, cyanosis. HEENT: AT/NC, EOMI, PERRLA, mildly dry MM. Lungs: CTA bilaterally, moderate effort, mild decrease BL bases, no rales, ronchi or wheezing. Heart: Regular rate and rhythm; no gallop, rub audible. Abdomen: soft, ongoing R flank discomfort and R sided abdominal palpation, no rebound, ND, decreased BS. Extremities: no cyanosis, clubbing, or edema. Neurological: patient awake, alert, oriented x 3; cognitive function intact; pupils equally reactive to light and accomodation; cranial nerves II-XII grossly normal, moving all 4 extremities, no focal deficits, strength moderately to severely globally decreased secondary to acute presentation, pain. Psychiatric: affect appears fatigued, strained, no acute evidence of depressive or anxiety feelings. Vitals/I&O's: Vital Signs Temp Pulse Resp BP Pulse Ox 98.0 F 82 20 H 121/92 H 100 01/16/18 04:25 01/16/18 04:25 01/16/18 04:25 01/16/18 04:25 01/16/18 04:25 Oxygen Delivery Method Room Air Weight: 161 lb 13.109 oz Body Mass Index (BMI) 22.6 Intake and Output for Last 24 Hours 01/14/18 01/15/18 01/16/18 23:59 23:59 23:59 Intake Total 619 / 619 Output Total 350 / 350 Balance 269 / 269 Laboratory Results 01/16/18 06:32: WBC 11.2 H, RBC 3.98 L, Hgb 12.5 L, Hct 35.1 L, MCV 88.2, MCH 31.4, MCHC 35.6, RDW 11.7, RDW Differential 36.9, Plt Count 144 L, MPV 11.0, Immature Gran % (Auto) 0.200, Neut % (Auto) 53.2, Lymph % (Auto) 40.1, [place] % ( Auto) 6.2, Eos % (Auto) 0.2, Baso % (Auto) 0.1, Absolute Neuts (auto) 5.9, Absolute Lymphs (auto) 4.48, Total Counted Not Reportable 01/16/18 06:32: Sodium 145, Potassium 3.7, Chloride 111 H, Carbon Dioxide 28.0, Anion Gap 6, BUN 16, Creatinine 0.93, Estim Creat Clear Calc 124.96, Est GFR ( MDRD) Af Amer 126, Est GFR (MDRD) Non-Af 104, BUN/Creatinine Ratio 17.2, Glucose 94, Calcium 7.8 L Current Medications Sodium Chloride () 1,000 mls @ 100 mls/hr IV .Q10H RICKY Last Admin: 01/15/18 23:51 Dose: 100 mls/hr Ceftriaxone Sodium (Rocephin) 1 gm in 50 mls @ 100 mls/hr IV Q24 RICKY Sodium Chloride () 250 mls @ 15 mls/hr IV .[id number] PRN PRN Reason: SALINE FLUSH Magnesium Hydroxide (Milk Of Magnesia) 30 ml PO DAILY PRN PRN PRN Reason: Constipation Morphine Sulfate () 4 mg IV Q2H PRN PRN PRN Reason: SEVERE PAIN (6-10/10) Last Admin: 01/16/18 06:42 Dose: 4 mg Ondansetron HCl (Zofran) 4 mg IV Q8H PRN PRN PRN Reason: Nausea Sodium Chloride () 5 - 30 ml IV UD PRN PRN Reason: SALINE FLUSH Last Admin: 01/16/18 02:13 Dose: 10 ml Medical Necessity - Tobacco Use Smoking Status: Former smoker Tobacco Use: Non-smoker Assessment/Plan All Active Problems Right ureteral calculus (Acute) UTI (urinary tract infection) (Acute) The patient is a 27 y/o M w/ PMHx: Nephrolithiasis w/ prior R Ureteral Stent placement who presents to the [facility] ED on 01/15/18 w/ onset of worsening R flank pain and severe dysuria in addition to nausea. (1) Acute Flank Pain, secondary to Acute Nephrolithiasis, Acute UTI: WBC w/ 18.3 w/ L shift, low grade T, UA remarkable w/ pending UCx requested from original UA, CT Abd obtained w/ right-sided ureteral stents in adequate position with a 3 mm calculus in the distal right ureter adjacent to the stent just proximal to the UVJ with no hydronephrosis or further nephrolithiasis with small amount of free fluid in the deep left pelvis, small fat-containing umbilical hernia. Admitted to DC, maintained on hydration, maintain on IV Rocephin antiobitic therapy pending UCx, maintain NPO for ntervention, Famotidine, liberalize pain regimen given ongoing severe pain w/ IV/Oral regimen , scheduled toradol in addition given appropriate renal Fx, PRN anti-emetics, monitor I&Os. Given size of calculus and near stent, Urology consulted for intervention today. (2) Former Tobacco use: Encourage continued cessation. (3) DVT Prophylaxis: TEDs, low risk, ambulation encouraged. Code Visit Inpatient E&M: 70224 Subs Hosp L2
[2018-01-16] MEDS: Ketorolac 30 MG/ML Syringe IV ×2 (08:54→14:07)
[2018-01-16] MEDS: HYDROmorphone 1 MG/ML Syringe IV (09:06)
[2018-01-16] MEDS: 0.9% Normal Saline 1,000 ML 100 ML IV ×2 (09:49→14:07)
[2018-01-16] MEDS: Ceftriaxone 1 GM/50 ML BAG IV (09:49)
[2018-01-16] MEDS: Ondansetron 4 MG/2 ML Vial (12:30)
--- NOTE | 2018-01-16 12:41 | PCM.OPRPT ---
Report of Operation Date of Procedure: 01/16/18 Pre-Operative Diagnosis: Right ureteral calculi with obstruction Post-Operative Diagnosis: Same Surgery/Procedure Performed:: Cystoscopy, right ureteroscopy basket extraction of stone. Description of Surgical Findings:: 27-year-old male taken back to the operating room he underwent stent placement this past weekend for an obstructing stone, penis and testicles were preppedPrepped and draped in usual sterile fashion, went into the bladder with a 21 [place] rigid cystourethroscope, grabbed the existing stent from the right side advanced into the meatus try to advance a wire into the left axis so I pulled out the stent pulled the wire then went into the bladder with a rigid ureteroscope and offset, once inside the bladder identified the right ureteral orifice was able to get into quite easily from dilation of the stent when of the ureter and encountered a stone 3 mm in size basketed the stone and extracted and then drain the bladder and decided not to leave a stent in, patient anesthetic was reversed to take back to PACU in good condition. Type of Anesthesia:: General Drains: stent - Admit VTE Documentation VTE Present on Admission: No VTE Mechan Device Prophylaxis: SCD's VTE Pharm Prophylaxis ordered?: No Reason prophylaxis not ordered:: Treatment Not Indicated
--- NOTE | 2018-01-16 12:49 | CASEMGMT ---
RN CM Assessment. DC PLAN: home. No needs identified. Jeffrey MATTHEWSN RN ACM
--- NOTE | 2018-01-16 14:19 | NURSING ---
Back from surgery. Ordered lunch, up to bathroom and voided without pain. Did not measure or see urine. Pt denies pain at this time. VS wnl.
--- NOTE | 2018-01-16 15:09 | PCM.DC ---
- Discharge Diagnoses Current Active Problems: Current Active and Chronic Problems (1) Acute Flank Pain, secondary to Acute Nephrolithiasis and Suspected Acute UTI (2) Former Tobacco use You will use the following diet at home:: Regular Your food should be the consistency of: Regular Your liquids should be the consistency of: Regular/Thin Discharge Activity: - - Activity limitations per Urology direction. Avoid driving/machinery usage while on narcotic therapy. May resume sexual activity in: - - Avoid sexual activity until cleared by Urology. Weight Bearing Status: Weight bearing as tolerated Call your doctor if you observe: Fever of 101 or Higher, Inability to urinate, Inability to have a bowel movement, Shortness of breath, Dizziness, Fainting spells, Chest pain, Uncontrolled pain Instructions: Understanding Urinary Tract Infections (UTIs), Urinary Tract Infections in Men, Kidney Stones: Are You at Risk?, Understanding Kidney Stones, Identifying Kidney Stones, Treating Kidney Stones: Ureteroscopic Stone Removal, Preventing Kidney Stones Additional Instructions: Urine culture is pending upon your discharge. Please call the which is the phone number for medical surgical floor 2 on 01/18/18 AM to request results from your Urine culture. Pending Tests on Discharge: Urine culture Allergies/Adverse Reactions: Allergies No Known Allergies Allergy (Verified 01/15/18 19:58) Medications to take at Discharge Cefdinir [Omnicef [equiv]] 300 mg PO Q12H #10 cap 01/16/18 Oxycodone [Oxyir] 5 mg PO Q4H PRN PRN #20 tablet 01/16/18 The following prescriptions were given: Oxycodone [Oxyir] 5 mg PO Q4H PRN PRN #20 tablet PRN Reason: Severe Pain (6-/) Cefdinir [Omnicef [equiv]] 300 mg PO Q12H #10 cap Primary Care Physician: Care Physician,No Primary [Primary Care Provider] - Please follow up with your Primary Care Physician in: Follow-up with your PCP within 3-5 days to review admission. Test Results: Test results from this visit will be discussed in further detail at your follow-up appointment, if applicable. Please Follow Up With: Vincent Mohan MD When: Follow-up within 1 week for re-evaluation. Proposed Discharge Date: 01/16/18
--- NOTE | 2018-01-16 15:30 | DCINST_ITS ---
- Discharge Diagnoses Current Active Problems: Current Active and Chronic Problems (1) Acute Flank Pain, secondary to Acute Nephrolithiasis and Suspected Acute UTI (2) Former Tobacco use You will use the following diet at home:: Regular Your food should be the consistency of: Regular Your liquids should be the consistency of: Regular/Thin Discharge Activity: - - Activity limitations per Urology direction. Avoid driving/machinery usage while on narcotic therapy. May resume sexual activity in: - - Avoid sexual activity until cleared by Urology. Weight Bearing Status: Weight bearing as tolerated Call your doctor if you observe: Fever of 101 or Higher, Inability to urinate, Inability to have a bowel movement, Shortness of breath, Dizziness, Fainting spells, Chest pain, Uncontrolled pain Instructions: Understanding Urinary Tract Infections (UTIs), Urinary Tract Infections in Men, Kidney Stones: Are You at Risk?, Understanding Kidney Stones , Identifying Kidney Stones, Treating Kidney Stones: Ureteroscopic Stone Removal , Preventing Kidney Stones Additional Instructions: Urine culture is pending upon your discharge. Please call the which is the phone number for medical surgical floor 2 on 01/18/18 AM to request results from your Urine culture. Pending Tests on Discharge: Urine culture Allergies/Adverse Reactions: Allergies No Known Allergies Allergy (Verified 01/15/18 19:58) Medications to take at Discharge Cefdinir [Omnicef [equiv]] 300 mg PO Q12H #10 cap 01/16/18 Oxycodone [Oxyir] 5 mg PO Q4H PRN PRN #20 tablet 01/16/18 The following prescriptions were given: Oxycodone [Oxyir] 5 mg PO Q4H PRN PRN #20 tablet PRN Reason: Severe Pain (6-/) Cefdinir [Omnicef [equiv]] 300 mg PO Q12H #10 cap Primary Care Physician: Care Physician,No Primary [Primary Care Provider] - Please follow up with your Primary Care Physician in: Follow-up with your PCP within 3-5 days to review admission. Test Results: Test results from this visit will be discussed in further detail at your follow- up appointment, if applicable. Please Follow Up With: Vincent Mohan MD When: Follow-up within 1 week for re-evaluation. Proposed Discharge Date: 01/16/18
--- NOTE | 2018-01-16 15:33 | PCM.DC.SUM ---
Discharge Date and Diagnosis - Problem List Patient Problems: Active and Suspected Problems UTI (urinary tract infection) (Acute) Date of Admission: 01/15/18 Date of Discharge: 01/16/18 - Primary Discharge Diagnosis Active and Suspected Problems (1) Acute Flank Pain, secondary to Acute Nephrolithiasis w/ Suspected Acute UTI, Unclear Organism (2) Former Tobacco use - Secondary Discharge Diagnosis Former Tobacco use Prior Ureteral Stent Hospital Course and Treatment Imaging Results: 01/16/18 11:30 O.R. Fluoro for C-Arm [RAD] Urgent Dr. Mohan Urology Operations: - - 01/16/18 Cystoscopy, right ureteroscopy basket extraction of stone and removal of stent per Dr. Mohan. Procedures: None Summary of Care Provided: The patient is a 27 y/o M w/ PMHx: Nephrolithiasis w/ prior R Ureteral Stent placement who presented to the [facility] ED on 01/15/18 w/ onset of worsening R flank pain and severe dysuria in addition to nausea. ED presentation w/ WBC w/ 18.3 w/ L shift, low grade T, UA remarkable w/ pending UCx requested from original UA, CT Abd obtained w/ right-sided ureteral stents in adequate position with a 3 mm calculus in the distal right ureter adjacent to the stent just proximal to the UVJ with no hydronephrosis or further nephrolithiasis with small amount of free fluid in the deep left pelvis, small fat-containing umbilical hernia. Admitted to [place], maintained on hydration, maintained on IV Rocephin antiobitic therapy pending UCx, maintained NPO for intervention, Famotidine, liberalized pain regimen given ongoing severe pain w/ IV/Oral regimen, scheduled toradol in addition given appropriate renal Fx, PRN anti-emetics, monitor I&Os. Given size of calculus and near stent, Urology consulted for intervention. Patient underwent 01/16/[address] Mohan w/ cystoscopy, right ureteroscopy basket extraction of stone and removal of previously placed stent. Following patient had notable improvement in condition, requested discharge to home therefore given UA and CBC upon presentation, transitioned to omnicef 300 mg BID x 5 days additional w/ pending UCx upon discharge w/ patient directed called back for UCx results, PCP follow-up and Urology follow-up per Dr. Mohan direction. Discharge Activity: - - Activity limitations per Urology direction. Avoid driving/machinery usage while on narcotic therapy. May resume sexual activity in: - - Avoid sexual activity until cleared by Urology. Weight Bearing Status: Weight bearing as tolerated Call your doctor if you observe: Fever of 101 or Higher, Inability to urinate, Inability to have a bowel movement, Shortness of breath, Dizziness, Fainting spells, Chest pain, Uncontrolled pain Home Medications: Medications to take at Discharge Cefdinir [Omnicef [equiv]] 300 mg PO Q12H #10 cap 01/16/18 Oxycodone [Oxyir] 5 mg PO Q4H PRN PRN #20 tablet 01/16/18 Following Prescrptions Were Given to Patient: Oxycodone [Oxyir] 5 mg PO Q4H PRN PRN #20 tablet PRN Reason: Severe Pain (-04/11) Cefdinir [Omnicef [equiv]] 300 mg PO Q12H #10 cap Primary Care Physician: Care Physician,No Primary [Primary Care Provider] - Please follow up with your Primary Care Physician in: Follow-up with your PCP within 3-5 days to review admission. Please Follow Up With: Vincent Mohan MD When: Follow-up within 1 week for re-evaluation. Patient Instructions: Urinary Tract Infections in Men, Understanding Urinary Tract Infections (UTIs), Kidney Stones: Are You at Risk?, Understanding Kidney Stones, Identifying Kidney Stones, Treating Kidney Stones: Ureteroscopic Stone Removal, Preventing Kidney Stones Disposition: Home Minutes spent on discharge:: 35 Patient Condition:: Fair Medical Necessity - Tobacco Use Smoking Status: Former smoker Tobacco Use: Non-smoker Meaningful Use Info Meaningful Use Diagnoses (Choose all that apply): None applicable Code Visit Inpatient E&M: 03062 Disch Hosp
--- NOTE | 2018-01-16 15:40 | DS.PCM_ITS ---
Discharge Date and Diagnosis - Problem List Patient Problems: Active and Suspected Problems UTI (urinary tract infection) (Acute) Date of Admission: 01/15/18 Date of Discharge: 01/16/18 - Primary Discharge Diagnosis Active and Suspected Problems (1) Acute Flank Pain, secondary to Acute Nephrolithiasis w/ Suspected Acute UTI , Unclear Organism (2) Former Tobacco use - Secondary Discharge Diagnosis Former Tobacco use Prior Ureteral Stent Hospital Course and Treatment Imaging Results: 01/16/18 11:30 O.R. Fluoro for C-Arm [RAD] Urgent Dr. Mohan Urology Operations: - - 01/16/18 Cystoscopy, right ureteroscopy basket extraction of stone and removal of stent per Dr. Mohan. Procedures: None Summary of Care Provided: The patient is a 27 y/o M w/ PMHx: Nephrolithiasis w/ prior R Ureteral Stent placement who presented to the [facility] ED on 01/15/18 w/ onset of worsening R flank pain and severe dysuria in addition to nausea. ED presentation w/ WBC w/ 18.3 w / L shift, low grade T, UA remarkable w/ pending UCx requested from original UA , CT Abd obtained w/ right-sided ureteral stents in adequate position with a 3 mm calculus in the distal right ureter adjacent to the stent just proximal to the UVJ with no hydronephrosis or further nephrolithiasis with small amount of free fluid in the deep left pelvis, small fat-containing umbilical hernia. Admitted to [place], maintained on hydration, maintained on IV Rocephin antiobitic therapy pending UCx, maintained NPO for intervention, Famotidine, liberalized pain regimen given ongoing severe pain w/ IV/Oral regimen, scheduled toradol in addition given appropriate renal Fx, PRN anti-emetics, monitor I&Os. Given size of calculus and near stent, Urology consulted for intervention. Patient underwent 01/16/[address] Mohan w/ cystoscopy, right ureteroscopy basket extraction of stone and removal of previously placed stent. Following patient had notable improvement in condition, requested discharge to home therefore given UA and CBC upon presentation, transitioned to omnicef 300 mg BID x 5 days additional w/ pending UCx upon discharge w/ patient directed called back for UCx results, PCP follow-up and Urology follow-up per Dr. Mohan direction. Discharge Activity: - - Activity limitations per Urology direction. Avoid driving/machinery usage while on narcotic therapy. May resume sexual activity in: - - Avoid sexual activity until cleared by Urology. Weight Bearing Status: Weight bearing as tolerated Call your doctor if you observe: Fever of 101 or Higher, Inability to urinate, Inability to have a bowel movement, Shortness of breath, Dizziness, Fainting spells, Chest pain, Uncontrolled pain Home Medications: Medications to take at Discharge Cefdinir [Omnicef [equiv]] 300 mg PO Q12H #10 cap 01/16/18 Oxycodone [Oxyir] 5 mg PO Q4H PRN PRN #20 tablet 01/16/18 Following Prescrptions Were Given to Patient: Oxycodone [Oxyir] 5 mg PO Q4H PRN PRN #20 tablet PRN Reason: Severe Pain (-04/11) Cefdinir [Omnicef [equiv]] 300 mg PO Q12H #10 cap Primary Care Physician: Care Physician,No Primary [Primary Care Provider] - Please follow up with your Primary Care Physician in: Follow-up with your PCP within 3-5 days to review admission. Please Follow Up With: Vincent Mohan MD When: Follow-up within 1 week for re-evaluation. Patient Instructions: Urinary Tract Infections in Men, Understanding Urinary Tract Infections (UTIs), Kidney Stones: Are You at Risk?, Understanding Kidney Stones, Identifying Kidney Stones, Treating Kidney Stones: Ureteroscopic Stone Removal, Preventing Kidney Stones Disposition: Home Minutes spent on discharge:: 35 Patient Condition:: Fair Medical Necessity - Tobacco Use Smoking Status: Former smoker Tobacco Use: Non-smoker Meaningful Use Info Meaningful Use Diagnoses (Choose all that apply): None applicable Code Visit Inpatient E&M: 11982 Disch Hosp
[2018-01-16] MEDS: Famotidine 20 MG Tablet PO (16:43)
== END 2018-01-16 16:58 | disposition home or self-care (01) | DRG 669 ==
LOC: ED 21:25 → MS2 23:03
PROVIDERS: Urology; Admitting Provider Family Medicine; Emergency Provider Emergency Medicine; Visit Provider Family Medicine
PROC: 0TJ98ZZ Inspection of Ureter, Via Natural or Artificial Opening Endoscopic (ICD-10-PCS; CPT 52352; principal; 2018-01-16 10:25)
DX: N20.1 Calculus of ureter (principal); N39.0 Urinary tract infection, site not specified; Z87.891 Personal history of nicotine dependence
CPT/HCPCS: 36415; 74176; 76000; 80048; 81001; 85025; 87086; 88300; 99284; J7030; A4216; C1769; J2405

== ENCOUNTER 2018-01-18 07:35 | Emergency (ER) | payer BC, SELFPAY ==
[2018-01-18 07:36] VITALS: BP 133/78; PULSE 71; RESP 20; TEMP 36.7; O2SAT 97; BMI 22.1
--- NOTE | 2018-01-18 07:49 | ED.VISSUMM ---
- ER Visit Summary Date of Service: 01/18/18 Chief Complaint: Right flank pain History of Present Illness: The patient is a [address] Mohan and does not have a primary care physician. Reports that he was diagnosed with kidney stone January 14 and was admitted to the hospital. He had a right ureteral stent placed that day. He was discharged. He returned the next day with worsening pain and had urine that was positive for nitrates and elevated white count. He was admitted to the hospital given Rocephin IV and had the ureteral stent removed on the . He was discharged on Omnicef and oxycodone. Patient reports that he was doing quite well. However, patient reports that approximately 1 hour ago his pain became unbearable again. It is sharp pain in the right flank that is 10 out of 10 severity. Is worsened by nothing. She relieved transiently by movement. Is been nausea and vomited multiple times no blood in his emesis. Reports his last bowel movement was 3 days ago and typically he goes daily. He denies any dysuria or frequency. He is still having hematuria. He denies any fever. Physical Examination: Vitals: Stable. Afebrile. General: Well-nourished and well-developed. Head: Normocephalic atraumatic. Neck: Supple, no lymphadenopathy. No JVD. Nontender. Cardiovascular: Regular rate and rhythm. No murmurs. Respiratory: No respiratory distress. Clear to auscultation bilaterally. Abdominal: Soft, nontender, nondistended, normal bowel sounds. No guarding, rebound, or peritoneal signs. Back: Severe right CVA tenderness. Extremities: Nontender, no edema. Skin: Normal color, no rash. Neurologic: Alert and oriented ?3. Cranial nerves II through XII are intact. Normal strength and sensation. Psych: Normal affect. Test Results: His prior labs and CTs were reviewed. His urine culture has not returned. CBC is remarkable for a white count of 13.2 with 42 lymphocytes. Chem-7 is more for potassium of 3.2 and glucose 111. UA shows 25-50 red blood cells, occult blood, and leukocyte esterase. CT flank shows mild residual right hydronephrosis/ureter without a calculus. Emergency Department Course and Treatment: Patient had an IV placed. He was given Toradol, Zofran, and morphine IV. His pain has improved. He is resting comfortably at this point and is pain-free. Treatment Plan: Patient was discussed with Dr. oMhan. He has had the patient have Flomax and an anti-inflammatory added to his Omnicef and Percocet. He will follow-up in the office next week for further evaluation and treatment. Return to the emergency department for any worsening symptoms. Disposition: To home in improved and stable condition. Impression: 1. 2 days status post right ureteral stent removal. This note was generated with [employer] dictation software. It may contain incorrect words, spelling, and punctuation that were not noted in review of the chart prior to signing ED Disposition - Plan for ED Patient: Chief Complaint: Flank Pain Instructions: ED Stone Renal Passed Prescriptions: Ondansetron [Zofran Odt] 4 mg PO Q8H PRN PRN #10 tablet PRN Reason: Nausea Tamsulosin HCl [Flomax] 0.4 mg PO DAILY #7 capsule Naproxen [Naprosyn] 500 mg PO BID #20 tablet Referrals: Vincent Mohan MD [STAFF PHYSICIAN] - Keep Fernando appointment
[2018-01-18 07:59] LABS: Absolute Lymphocyte Count 5.56 X10^3/ul (0.83-4.51); Absolute Neutrophil Count 6.5 X10^3/uL (2.0-7.7); Basophil# 0.01 X10^3/uL; Basophil% 0.1 % (0-1); Eosinophil# 0.11 X10^3/uL; Eosinophils% 0.8 % (0-5); Hematocrit 42.2 % (40-54); Hemoglobin 15.1 g/dl (13.0-16.5); Lymphocyte # 5.56 X10^3/ul (4.0); Lymphocyte % 42.2 % (19-41); Mean Corp Hgb Conc 35.8 g/gl (32-36); Mean Corpuscular Hgb 30.6 pg (27.0-32.0); Mean Corpuscular Volume 85.6 fL (80-94); Mean Platelet Vol. 10.8 fl (6.2-12.0); Monocyte# 1.01 X10^3/uL; Monocyte% 7.7 % (0-10); Neutrophil # 6.47 X10^3/uL (2.7-7.7); Platelet Count 192 K/mm3 (150-450); RBC Distribution Width CV 11.9 % (11.6-14.6); RBC Distribution Width SD 36.9 fl (35.1-43.9); Red Blood Count 4.93 M/mm3 (4.6-6.2); White Blood Count 13.2 K/mm3 (4.4-11.0)
[2018-01-18 08:00] LABS: Differential Indicated SCAN CRITERIA MET; POSITIVE COUNT NO; POSITIVE DIFFERENTIAL YES; POSITIVE MORPHOLOGY NO
[2018-01-18] MEDS: Ketorolac 30 MG/ML Syringe IV (08:00)
[2018-01-18] MEDS: Ondansetron 4 MG/2 ML Vial IV (08:00)
[2018-01-18] MEDS: Morphine 4 MG/ML Syringe IV (08:00)
[2018-01-18] MEDS: 0.9% Normal Saline 1,000 ML 250 ML IV (08:00)
--- NOTE | 2018-01-18 08:08 | CT_ITS ---
STUDY: CT ABDOMEN AND PELVIS WITHOUT CONTRAST REASON FOR EXAM: Male, 27 years old. Right flank pain. Recent placement and removal of a right ureteral stent. RADIATION DOSAGE (If Supplied By Facility): CTDIvol = ( 6.12 ) mGy, DLP = ( 324.21 ) mGycm TECHNIQUE: Transaxial images were obtained from the dome of the diaphragm to the symphysis pubis without oral contrast, and without intravenous contrast. Sagittal and coronal images were reconstructed. Individualized dose optimization techniques were used for this CT. COMPARISON: Comparison is made with prior examination dated January 15, 2018. FINDINGS: The visualized lung bases are unremarkable. The visualized portions of the heart are within normal limits. Normal liver. Normal gallbladder and extrahepatic biliary system. Normal spleen. Normal pancreas. Normal bilateral adrenal glands. Mild residual right hydronephrosis and hydroureter. The previously seen right ureteral stent has been removed. No ureteral calculus is seen. Normal left kidney. Normal visualized stomach. Normal small intestine. There are multiple colonic diverticula consistent with diverticulosis. The appendix is visualized and appears normal. Normal abdominal aorta. Normal inferior vena cava. Normal retroperitoneum. Mild degree of bladder wall thickening. Small amount of air is seen along the anterior aspect of the urinary bladder most likely secondary to recent instrumentation. Normal abdominal wall. Normal osseous structures. CT/Abdomen/Pelvis without Cont IMPRESSION: Status post removal of the right ureteral stent with residual mild right hydronephrosis and hydroureter. No ureteral calculus is seen. Electronically Signed: Escobar New MD at 8:58 EDT Tel [phone], Service support ,
[2018-01-18 08:11] LABS: Anion Gap 10 (5-15); BUN 13 mg/dL (7-18); BUN/Creat Ratio 12.1 RATIO (10-20); Calcium,Total 9.1 mg/dL (8.5-10.1); Chloride 106 mmol/L (98-107); Creatinine, Serum 1.07 mg/dL (0.70-1.30); EST Glomerular Filtration Rate 88 mL/min (>60); Est Glom Filt Rate - Afr Amer 107 mL/min (>60); Estimated Creatinine Clearance 106.84 ml/min; Glucose 111 mg/dL (74-106); Potassium 3.2 mmol/L (3.5-5.1); Sodium Level 143 mmol/L (136-145)
[2018-01-18 08:30] LABS: Bacteria 0 SEEN /hpf (None Seen); Mucous, Urine 0 SEEN /hpf (<or=2+); Squamous Epithelial Cells - UA 0 SEEN /hpf (0-5)
[2018-01-18 08:32] LABS: Color, Urine Yellow (Yellow); Glucose, Dipstick Normal (Normal); Ketone-Dipstick Negative (Negative); Leukocyte Esterase-Dipstick 25 /ul (Negative); Nitrite-Dipstick Negative (Negative); Occult Blood-Urine 250 /ul (Negative); Protein-Dipstick 15 mg/dl (Negative); Specific Gravity, Urine 1.015 (1.002-1.030); Urine Bilirubin Dipstick Negative (Negative); Urine Clarity Sl. Cloudy (Clear); Urine Urobilinogen Normal (Normal)
[2018-01-18 08:38] LABS: Red Blood Cells-Urine 25-50 SEEN /hpf (0-5); White Blood Cells 0-5 SEEN /hpf (0-5)
[2018-01-18 09:09] VITALS: BP 137/73; PULSE 59; RESP 16; O2SAT 97
[2018-01-18 09:22] VITALS: BP 118/69; PULSE 72; RESP 14; O2SAT 100
== END 2018-01-18 09:25 | disposition home or self-care (01) ==
PROVIDERS: Emergency Provider Emergency Medicine
DX: N13.30 Unspecified hydronephrosis (principal); Z98.890 Other specified postprocedural states; R31.9 Hematuria, unspecified; R11.2 Nausea with vomiting, unspecified; K59.00 Constipation, unspecified; Z79.899 Other long term (current) drug therapy; Z87.442 Personal history of urinary calculi
CPT/HCPCS: 74176; 80048; 81001; 85025; 96361; 96374; 96375; 99283; J7030; J2405

== ENCOUNTER 2020-04-02 09:00 | Outpatient (RCR) | payer BC, SELFPAY ==
--- NOTE | 2020-04-02 11:15 | BH.SGPN.GN ---
Behaviors/Verbalizations/Mental Status: []Client alert and oriented, casually dressed, hygiene appeared to be tended to. Eye contact good. Motor activity tense and restless. Speech within normal limits. Affect unable to gather due to wearing a mask for COVID-19 protocol, mood anxious. Thoughts linear, logical, no signs of hallucinations or delusions. Client Response/Progress/Benefit: []Client receptive of session, engaged and positively contributing. Participated in group discussion on the various areas of self-care, benefits, and types of self-care activities for each area. Client stated current self-care practices utilized are ?working, hiking, and talking with supports.? Client completed self-assessment activity on his own utilization of the different areas of self-care and was able to identify current practices he actively practices and areas he can improve upon. 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 Client benefited from first day of IOP as he was able to identify self-care and increase self-awareness of healthy coping skills. Client will continue IOP to prevent decompensation that may require hospitalization and to improve daily functioning Narrative Note: []
--- NOTE | 2020-04-02 14:29 | BH.MDN_ITS ---
Multi-Disciplinary Note - Note 60-min Individual Time Started:: 09:00 Date: 04/02/20 Purpose of session/treatment goals addressed:: Pt was exhibiting significant anxiety and panic-like symptoms related to starting IOP today. Utilized the session to education and model coping skills while patient was having a panic attack. Eye Contact:: Fair Motor Activity:: Restless Appearance:: Casual Speech:: Rapid Mood:: Anxious Affect:: Congruent Thoughts:: Linear, Logical, No evidence of hallucinations/delusions noted Staff Interventions:: Provided psychoeducation on coping skills for anxiety. Modeled breathing and worked with pt to calm while he was having a panic attack. Client Response:: Pt is significantly anxious about attending group counseling however repeatly states I know I need to do this as he has not made progress in traditional outpatient and does not want to go to inpatient (fear of hospitals). Receptive to education on coping skills. He discussed what he has been working on with his outpatient therapist which involves writing down and reviewing his thoughts. He finds that reviewing his thoughts his helpful however he continues to have daily panic attacks. States I psych myself out. He discussed some recent panic attacks while in public. Anxiety that he will have a panic attacks which ultimately leads to a panic attacks. Mostly occur outside of home. Primary coping skills is to leave the situation and then do breathing exercises. Triggers to panic are feeling cornered, not being able to escape, and fear he is having a heart attack. Has had panic and anxiety for majority of life however worsening in the past several months. Along with anxiety notes depression and antwan. Recent manic episode from -03/29 in which is did not sleep. Met with counseling and PCP on 03/30/20 and was started on medications. Reports sleeping 5 hours each night since. Reports being in a stupor during antwan however continued to function. During this reported sucidal ideations with thoughts about methods. He cannot recall the specifics but it involved shooting himself. Currently no access to guns. This is only the second time he has had suicidal ideations in his life. None since then. After speaking with pt for about 45 minutes he was taken to group room to await the begining of next group. Prior to group staff noticed pt in the hallway pacing and having a panic attack. Took pt to private room and worked with him to decrease intensity. Pt was verbalizing numerous negative self-talk statements this is so stupid.. I'm messed up... I'm never going to get better..Why am I like this... It should be that hard to sit in a room with others. Responded well to 5 senses and was able to calm. Modeled breathing techniques. Once calm he wanted to return to the group. Risks/Concerns:: Denies any active suicidal ideations, plan, or intent. Completed [place] Suicide screening with moderate risk. Most recent suicidal thought was last week while in manic episode (no sleep in 3 days). States thought was irrational. No access to weapons. Protective factors. Future- oriented. Progress Toward Goals/Plan:: Progress noted today. [place] new coping skills for anxiety. Despite having a panic attack prior to group was able to calm and return to group. Plan in to continue in IOP to maintain safety, increase healthy coping skills, and improve functioning. Time Stopped:: 10:30
--- NOTE | 2020-04-06 10:16 | BH.DS_ITS ---
Discharge Summary - Demographics Date of Admission:: 04/02/20 Discharge Date: 04/06/20 Presenting Problems at Admission:: Pt is a 29 year old male who was recently diagnosed with Bipolar Disorder by his PCP and started on Seroquel and Paxil. No previous psychiatric admissions. Referred due to worsening anxiety, depression, and recent suspected manic episode. Pt reports 1-2 panic attacks daily for the past several months. Endorses decreased appetite, poor sleep, crying spells, isolation, no pleasure in activities, hopelessness, and difficulty concentrating. Denied active suicidal ideations, plan, or intent at intake. Hx of previous attempt 10 years ago in which he cut himself with glass. Reports that the cuts required medical attention and that he went to the ER, however was not admitted to a psych unit. He cut himself while intoxicated. Reports fleeting passive thoughts of I don't want to live like this. Protective factors reported. Future-oriented. Pt reports a hx of manic epsiodes however never sought treatment. 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 Also reports hx of 12 concussions. Previous manic attacks involved erratic moods, high energy, and racing thoughts. Recent manic episode involved 3 days of insomnia and barbara fog. Did not sleep from 03/26/20- 03/29/20. PCP prescribed Seroquel on 03/30/20 and he reports improved sleep and mood. Denies HI or psychosis. Denies substance abuse. Pt started traditional counseling however no improvement noted. Recommended IOP due to limited benefit from traditional outpatient, daily panic attacks, passive thoughts of , recent Bipolar dx, and MH symptoms impacting functioning at home and work. Discharge Diagnoses:: Bipolar Disorder, F31.12 Reason for Discharge:: Admitted to higher level of care. - Treatment Progress During Treatment & Response: No progress noted. Pt attended one day of IOP. During one day of IOP he exhibited significant anxiety and experienced a panic attack. He was able to complete the day after the panic attack and appeared motivated to make changes. Was scheduled to attend IOP today however it was determined that he was admitted to psychiatric hospital over the weekend for espisode of self-harm. Issues Still to be Addressed:: Depression, erratic mood swings, insomnia, anxiety, daily panic attacks, decreased functioning due to mental health symptoms. Discharge Recommendations/Instructions:: Recommended to return to [facility] or [facility] level of care at discharge from psychiatric hospital. Discharge Handout: Complete Discharge Handout with client on aftercare options and continuity of care.
--- NOTE | 2020-04-09 10:20 | BH.SGPN.GN ---
Behaviors/Verbalizations/Mental Status: []Client alert and oriented, casually dressed. Eye contact good. Motor activity appropriate. Speech within normal limits. Affect unable to gather due to wearing a mask for COVID-19 protocol, mood euthymic. Thoughts linear, logical, no signs of hallucinations or delusions. Client Response/Progress/Benefit: []Client responded well to group and actively engaged throughout the session. Client provided input as the group brainstormed positive and negative aspects of stress on physical and mental health. Client agreed with the quote and stated that stress is something people can dwell on or reframe thoughts. Client defined stress as a ?feeling that lacks positivity.? Client identified his stressors as finances, family, work, mental health, self-care, therapy, being vulnerable, physical health, and sleep issues. Progress noted as client was able to identify the difference between healthy and unhealthy stress. Client continues to struggle with mood dysregulation and sleep issues. Client will continue PHP to prevent decompensation, monitor medications, and improve daily functioning. Narrative Note: []
--- NOTE | 2020-04-10 09:00 | BH.SGPN.GN ---
Behaviors/Verbalizations/Mental Status: []Client alert and oriented, casually dressed. Eye contact good. Motor activity appropriate. Speech within normal limits. Affect unable to gather due to wearing a mask for COVID-19 protocol, mood euthymic. Thoughts linear, logical, no signs of hallucinations or delusions. Reviewed client?s symptom tracker, risk for suicidal ideation below client?s baseline. No plan or intent plan, or intent as of 04/10/20. Client Response/Progress/Benefit: []Client responded well to session and engaged and provided feedback to other group members. Client shared his goal was to share more openly in group discussions and increase self-care. Client expressed he was feeling overwhelmed today as he had a stressful day yesterday and a busy day today. Client shared he has to visit many people today following his hospitalization. Client said he feels that he ?has to visit others today to make sure they know he is okay.? Group urged client to look at his day with a different perspective. Client stated he thinks he will reschedule two of the visits to help ease the pressure. Client said he will practice self-care throughout the day. Client?s current stressor is being vulnerable in group discussions. Progress noted as client was able to be vulnerable and talk about his stressors and conflicts. Client will continue IOP to increase the use of healthy coping skills and prevent decompensation. Narrative Note: []
--- NOTE | 2020-04-10 10:10 | BH.SGPN.GN ---
Behaviors/Verbalizations/Mental Status: []Client alert and oriented, casual dress, hygiene tended to. Eye contact fair. Motor activity appropriate. Speech within normal limits. Affect unable to gather due to client wearing a mask for COVID protocol, mood euthymic. Thoughts linear, logical, no signs of hallucinations or delusions. Client Response/Progress/Benefit: [] Client responded well to session, attentive throughout. Listening and participating throughout group discussion defining conflict and the differences between internal and external conflict. Client related to the group quote as he shared ?conflicts will always occur, but having peace is most important.? Group reported the benefits of addressing conflict as well as identified and discussed consequences of not addressing conflict. Client reported the consequences he encounters by not addressing conflict would be stockpiling conflicts that leads to increased crisis. Client attentive and contributing during psychoeducation of the different conflict resolution styles. Client reports his conflict style is competing which client believes is because of his upbringing. Client benefited from group as he learned new conflict resolution styles and the benefits. Client will continue IOP to prevent decompensation and maintain safety. Narrative Note: []
--- NOTE | 2020-04-13 11:15 | BH.SGPN.GN ---
Behaviors/Verbalizations/Mental Status: []Client alert and oriented, casually dressed, hygiene appeared to be tended to. Eye contact fair. Motor activity appropriate. Speech within normal limits. Affect congruent, mood anxious. Thoughts linear, logical, no signs of hallucinations or delusions Client Response/Progress/Benefit: []Client responded well to session as evidenced by client listening attentively to others and providing strategies during discussion. Client used the warning signs: no sleep, risk taking, and loss of interest to create his crisis plan. Client created a crisis action plan to help client better manage warning signs for crisis. Client shared his action plan for risk taking is to remind himself of the consequences of gambling. Client stated he is very good at rationalizing why he should sprague but wants to challenge this risky behavior. Client open to writing down consequences of gambling to help deter him. Client appeared to benefit from creating a crisis action plan and increasing self-awareness. Client to continue PHP tx to stabilize moods, increase healthy coping skills to decrease anxiety and prevent decompensation. Narrative Note: []
--- NOTE | 2020-04-15 09:05 | BH.SGPN.GN ---
Behaviors/Verbalizations/Mental Status: [] Client alert and oriented, casually dressed and groomed. Eye contact fair to good. Motor activity appropriate. Speech within normal limits. Affect unable to assess as pt wearing mask per COVID-19 protocol, mood anxious and agitated. Thoughts linear, logical, no signs of hallucinations or delusions. Reviewed client?s symptom tracker, no risk for suicidal ideation, plan, or intent as of 04/15/20. Client Response/Progress/Benefit: []Pt responded well to session, actively listening throughout and openly processed with group. Pt reports feeling sad this morning and attributed this to ongoing issues with sleep. Indicated he has not slept in the past two days which has been making it increasingly difficult to concentrate and feels his emotion have been dysregulated as a result. Discussed that his anxiety and panic are often more difficult to manage when he doesn?t sleep well. Pt receptive of and appeared to benefit from support provided by the group. Able to challenge himself to identify small positive which included being able to delegate work responsibilities to his brother so he had one less stressor to try and manage, as well as continue to remind himself to be patient as he his body is still adjusting to new medication changes which may be impacting sleep. Progress variable due to limited sleep impacting pt ability to internalize and apply tx skills learned. Pt recommended continued IOP tx to further improve emotion regulation, thought challenging, and anxiety management skills, as well as maintain stability. Narrative Note: []
--- NOTE | 2020-04-16 09:00 | BH.SGPN.GN ---
Behaviors/Verbalizations/Mental Status: []Client alert and oriented, casually dressed. Eye contact good. Motor activity appropriate. Speech within normal limits. Affect unable to gather due to wearing a mask for COVID-19 protocol, mood euthymic. Thoughts linear, logical, no signs of hallucinations or delusions. Reviewed client?s symptom tracker, no risk or plan for suicide ideation as of 04/16/20. Client Response/Progress/Benefit: []Client responded well to session, participated and engaged throughout group discussion. Client expressed feeling confident as client has been working on his goal of self-care. Client has been running and taking care of his hygiene daily. Client felt proud that he completed a goal he set for himself prior to IOP of running six miles each day. Client stated his anxiety has been low and reported he slept through the night which is progress as client has not been sleeping. Client identified work as his stressor today. Client benefited from group as he connected with other group members and accomplished one goal. Client will continue IOP to prevent decompensation and improve daily functioning. Narrative Note: []
--- NOTE | 2020-04-22 09:00 | BH.SGPN.GN ---
Behaviors/Verbalizations/Mental Status: []Client alert and oriented, casually dressed and appropriately groomed. Eye contact fair. Motor activity appropriate. Speech within normal limits. Affect constricted, mood anxious and dysthymic. Thoughts linear, logical, no signs of hallucinations or delusions. Client Response/Progress/Benefit: []Pt engaged participant AEB pt listening attentively to others and sharing thoughts and feelings. Pt stated his son's birthday republican this weekend was a success. Pt reported the focus of the day was on his son and there was no attention to his upcoming birthday which made him relieved. Pt stated he did have a set back on Monday and Monday with drinking too much alcohol and not taking his nighttime medications. Pt reported he recognizes self-medicating did not make him feel better. Pt stated yesterday I got back on the wagon, explaining he took all his medications, did not drink and started to engage in self-care again. Pt reported this morning he got up and exercised before IOP. Pt stated he was upset with himself for not following through with his routine and self-care but is trying to focus on what he can do in the here and now. Progress noted with pt recognizing use of unhealthy coping and choosing to get back to his healthy skills. Pt has made significant progress since starting PHP and will transition to IOP level of care care tomorrow. Narrative Note: []
== END 2020-04-06 10:16 | disposition short-term general hospital (02) ==
LOC: BHIOP 09:00
PROVIDERS: PCP Family Medicine; Referring Provider Psychiatry & Neurology Psychiatry; Visit Provider Psychiatry & Neurology Psychiatry
DX: F31.12 Bipolar disorder, current episode manic without psychotic features, moderate (principal)
CPT/HCPCS: H0035; 90853

== ENCOUNTER 2020-04-03 14:04 | Emergency (ER) | payer BC, SELFPAY ==
[2020-04-03 14:06] VITALS: BP 126/93; PULSE 103; RESP 22; TEMP 36.6; O2SAT 96; BMI 18.4
[2020-04-03 14:33] LABS: Absolute Lymphocyte Count 2.65 X10^3/uL (0.83-4.51); Absolute Neutrophil Count 5.2 X10^3/uL (2.0-7.7); Basophil# 0.04 X10^3/uL; Basophil% 0.5 % (0-1); Eosinophils% 1.2 % (0-5); Hematocrit 48.6 % (40-54); Hemoglobin 17.2 g/dL (13.0-16.5); Lymphocyte # 2.65 X10^3/ul (4.0); Lymphocyte % 31.3 % (19-41); Mean Corp Hgb Conc 35.4 g/dL (32-36); Mean Corpuscular Volume 87.7 fL (80-94); Mean Platelet Vol. 10.2 fl (6.2-12.0); Monocyte# 0.48 X10^3/uL; Monocyte% 5.7 % (0-10); NRBC Flagged by Analyzer 0 % (0-5); Neutrophil # 5.18 X10^3/uL (2.7-7.7); Neutrophil % 61.1 % (47-70); Platelet Count 266 K/mm3 (150-450); RBC Distribution Width CV 11.7 % (11.6-14.6); RBC Distribution Width SD 37.7 fl (35.1-43.9); Red Blood Count 5.54 M/mm3 (4.6-6.2); White Blood Count 8.5 K/mm3 (4.4-11.0)
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
--- NOTE | 2020-04-03 14:39 | ED.RN ---
THIS NURSE LEFT MESSAGE WITH DR. JO'S OFFICE TO FAX PT'S MEDICATION LIST TO [facility].
[2020-04-03 14:40] LABS: Anion Gap 5 (5-15); BUN 16 mg/dL (7-18); Calcium,Total 9.2 mg/dL (8.5-10.1); Chloride 107 mmol/L (98-107); Creatinine, Serum 1.07 mg/dL (0.70-1.30); EST Glomerular Filtration Rate 87 mL/min (>60); Est Glom Filt Rate - Afr Amer 105 mL/min (>60); Estimated Creatinine Clearance 89.84 ml/min; Glucose 144 mg/dL (74-106); Potassium 3.3 mmol/L (3.5-5.1); Sodium Level 140 mmol/L (136-145)
[2020-04-03 15:05] VITALS: RESP 16
[2020-04-03 15:23] LABS: Alcohol, Blood (Medical)-Serum < 3.0 mg/dL
[2020-04-03] MEDS: LORazepam 1 MG Tablet PO (15:48)
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
--- NOTE | 2020-04-03 16:38 | ED.RN ---
Asked pt if he would be able to provide a urine sample and he said 'No. States he is trying to contact his supervisor grinding. No eye contact, lying iin bed with arms crossed and female at bedside. Sitter at bs.
[2020-04-03 18:27] LABS: Amphetamine Urine VISTA NEGATIVE (<1000 ng/mL); Barbiturate Urine VISTA NEGATIVE (< 200 ng/mL); Benzodiazepine Urine VISTA NEGATIVE (< 200 ng/mL); Cocaine Urine VISTA NEGATIVE (< 300 ng/mL); Ecstacy Urine VISTA POSITIVE (< 500 ng/mL); Methadone Urine VISTA NEGATIVE (< 300 ng/mL); PCP Urine VISTA NEGATIVE (< 25 ng/mL); THC Urine VISTA POSITIVE (< 50 ng/mL); Vista UDS pH Range 6
--- NOTE | 2020-04-03 18:50 | CM.ED ---
Social Work Telephone call to [facility]. Referral made. Clinical information faxed. Pending review. Denisha MCMAHON, ZOHAIB
[2020-04-03 20:14] VITALS: BP 124/100; PULSE 101; RESP 14; O2SAT 93
--- NOTE | 2020-04-03 20:28 | CM.ED ---
Addendum entered by Swati Fink 04/03/20 20:31: [place] slip faxed. Original Note: Social Work Telephone call from [place], patient has been accepted by Dr. Ramon. Patient to admit to the [facility]. Nurse to call report to: [phone]. Medical team updated. Patient and patient spouse updated. Denisha MCMAHON, ZOHAIB
[2020-04-03 20:46] VITALS: BP 124/100; PULSE 93; RESP 14; O2SAT 98
--- NOTE | 2020-04-03 20:47 | ED.RN ---
REPORT GIVEN TO STORMY LOUISE AT [facility]. CURRENTLY AWAITING TRANSPORTATION.
[2020-04-03 21:00] VITALS: RESP 14
--- NOTE | 2020-04-03 21:50 | ED.RN ---
REPORT TO [facility]. PT SKIN P/W/D, RESP EVEN AND UNLABORED, PT A&O X 3, NO DISTRESS NOTED. PT OUT OF THE ED WITH EMS FOR TRANSPORT TO [facility].
== END 2020-04-03 21:51 ==
LOC: ED 14:51
PROVIDERS: Emergency Provider Emergency Medicine; PCP Family Medicine
DX: R45.851 Suicidal ideations (principal); Z87.442 Personal history of urinary calculi
CPT/HCPCS: 80048; 80307; 80320; 85025; 99285; G0480

== ENCOUNTER 2020-04-09 09:00 | Outpatient (RCR) | payer BC, SELFPAY ==
--- NOTE | 2020-04-09 11:23 | BH.SGPN.GN ---
Behaviors/Verbalizations/Mental Status: [] Client alert and oriented, casually dressed and groomed. Eye contact good. Motor activity appropriate. Speech within normal limits. Affect unable to gather due to wearing a mask for COVID-19 protocol, mood dysthymic and anxious. Thoughts linear, logical, no signs of hallucinations or delusions. Client Response/Progress/Benefit: [] Client engaged participant in session AEB listening attentively to others, providing feedback, and contributing throughout. Client actively listening during discussion about the 4 A's of managing stress. Noted that he has struggled with acceptance in the past, specifically regarding accepting his mental health and the effects ignoring past trauma has had on his overall ability to cope with new stressors. Identified he wants to work on improving his ability to manage the stress of poor sleep and daily responsibilities. Client shared that this will help to improve his relationships and willingness to continue working towards current goals. Discussed that by adapting his mindset and trying to focus on what is in his control would aid in reducing frustration with others and he?d as be less likely to give up. Client seemed to benefit from increased awareness of the impact of stress on mental health and increasing repertoire of stress management strategies. Will continue IOP tx to promote use of healthy coping skills, improve mood management, as well as prevent decompensation. Narrative Note: []
--- NOTE | 2020-04-10 11:10 | BH.SGPN.GN ---
Behaviors/Verbalizations/Mental Status: []Client alert and oriented, neatly dressed and groomed. Eye contact good. Motor activity appropriate. Speech within normal limits. Affect unable to gather due to wearing a mask for COVID-19 protocol, mood euthymic and anxious. Thoughts linear, logical, no signs of hallucinations or delusions. Client Response/Progress/Benefit: []Client engaged in session AEB listening attentively to others and providing input throughout. Client further processed his conflict resolution style and connects most with the competing style. Client shared ?I?m the youngest so I?ve always had to compete for attention.? Client stated this conflict resolution style results in client being ?falsely competitive? which causes issues within his family. Client did well to participate during the activity in which participants were challenged to eliminate various items through group consensus. Client contributed to discussion of the barriers that occurred during the activity as well as the conflict resolution strategies. Client identified wanting to work on staying in the present moment and forgetting past issues to better manage conflict. Appeared to benefit from gaining insight to how his conflict resolution style impacts mental health. Will continue IOP tx to prevent decompensation, increase emotional regulation skills, and improve daily functioning. Narrative Note: []
--- NOTE | 2020-04-10 14:52 | BH.MDN_ITS ---
Multi-Disciplinary Note - Note 45-min Individual Time Started:: 12:11 Date: 04/13/20 Purpose of session/treatment goals addressed:: The purpose of this session was to provide psychoeducation on anxiety and common symptoms and triggers associated. An additional purpose was to begin working with client on identify his own anxiety related warning signs, triggers, and means for coping he has used in the past. Other topics included mindfulness and grounding skills. Eye Contact:: Good Motor Activity:: Restless Appearance:: Casual Speech:: Appropriate Mood:: Anxious Affect:: Other - unable to gather due to client wearing a mask for COVID-19 protocol. Thoughts:: Linear, Logical, No evidence of hallucinations/delusions noted Staff Interventions:: Therapist used active listening and open-ended questions to explore client's current symptoms and stressors. Therapist used strengths perspective to empower client on his application of healthy coping skills and communication with his supports since discharging from inpatient hospitalization. Therapist provided psychoeducation on anxiety and aided client in identifying his own common anxiety related symptoms and triggers. Therapist discussed client previous means for coping with anxiety and introduced the concept of mindfulness as a tool for grounding himself and reducing anxiety in the moment. Client Response:: Client responded well to session, open to meeting with therap ist. Client stated he has been enjoying group and stated it has been much easier to engage and participate since returning from inpatient hospitalization, noting ?I feel like I?m functioning 90% better than before inpatient?. Client attributed this to medication changes he received while inpatient. Client discussed no longer wanting to rely solely on medications but acknowledged that he may never be able to completely wean off all psychiatric medication. Discussed that he had not received much prior therapy and therefore has not previously learned concrete skills for anxiety management. Receptive of psychoeducation on anxiety and did well to identify several or his own triggers and symptoms for anxiety. Client identified symptoms to include: racing thoughts, restlessness, poor concentration, and difficulties engaging. With some reflection he was able to note common anxiety triggers to include: changes in routine, new environments, feeling as though he is unable to focus or finds he has been doing something on ?autopilot? such as reading without truly retaining the information. Client worked with therapist to explore strategies he has previously used for managing identified symptoms. Noted that in the past he had over relied on medication to manage acute anxiety, as well as struggles significantly with avoidance, shutting down, and isolating during times of increased anxiety. Client noted that while inpatient he worked with the inpatient social work specialist on ?getting back to the basics? of checking-in with himself every 2 hours and ensuring he is getting enough water, protein, and has engaged in some type of movement. Identified this as being beneficial in reducing restlessness. Additionally, identified bouncing a basketball and running as new skills that have been beneficial. Client noted that he struggles most when feeling disconnected and responded well to reviewing components of mindfulness. Willing to practice 5-senses skill as homework. Risks/Concerns:: Client denies any suicidal ideations, plan, or intent as of 04/10/20. Client continues to be future oriented. Progress Toward Goals/Plan:: Client's second day in PHP treatment since inpatient hospitalization. Client reports enjoying IOP so far and shared that he has been able to connect with a lot of the materials covered in group. Client expressed that at times he struggles with memory and concentration which could impact ability to retain treatment materials; however, is motivated to learn new healthy means for coping. Client continues to endorse symptoms significant for anxiety which continue to impact hiw ability to complete daily tasks and connect with his supports. Will continue IOP tx to prevent decompensation, improve mood stability, and increase ability to cope with anxiety. Time Stopped:: 12:56
--- NOTE | 2020-04-13 10:17 | BH.NA_ITS ---
Physical Data - Vital Signs Pulse Rate: 94 Blood Pressure: 133/74 - Height/Weight Height: 1.83 m Weight:: 77.111 kg Weight in Pounds: 170.0 lbs Current Medication Compliance - Medication Compliance Do you take your medication as prescribed?: Yes Nutritional History - Appetite Nutritional Instructions:: If client shows signs of a swallowing problem, weight change of 10 pounds or more in the last month, or is on a diabetic diet, the physician will review and request a dietitian consult, as appropriate. All unintentional weight loss will be referred to the physician for decision on need for dietitian consult. Describe your appetite:: Good Additional nutritional information:: Client states he is on a strict fitness regimen where he eats strictly during the day. Functional Assessment - Sleep Pattern Describe any problems with sleeping: Client states over the past two nights, he has slept a total of 2 hours. Client states he has had nightmares/night terrors almost every night for many years. - Activities Motor Activity:: Functional Sensory/Communication Assess - Communication Problems Do you have difficulty understanding what people are saying?: No Medical Problems/History - Neurological Conditions Neurological: Other (See comments) Comments:: encephalilitis when he was 12 years old from mosquito bite. Client states he has had 12 concussions over the years and one brain bleed. - Genitourinary Conditions Genitourinary: Other (See comments) - kidney stones Surgical History - Surgical History Have you had any surgeries? If so, list type and date:: Yes - several surgeries from puncture injury, kidney stone removal Substance Abuse - Substance Abuse Please describe substance abuse in the last 30 days:: Client states he drinks alcohol socially on the weekends. Client states he smokes cigars occasionally, and smoked cigarrettes briefly. Client states he stopped using marijuana 1-2 months ago. Client states he used it to help him sleep and to help with appetite. Client states he uses CBD but is planning on stopping. Client states he has cut back significantly on his caffiene use after starting medications for mental health. Mental Status Summary - Mental Status Significant Findings/Observations on Appearance and Mood:: Client is alert and oriented x4. Client is casually groomed. Client is wearing a mask due to COVID19 pandemic. Client makes good eye contact during conversation. Clients voice volume is normal. Client appears mildly anxious during assessment. Client makes logical associations. Client denies delusions/hallucinations. Client denies SI. Suicide Assessment - Suicidal Ideation Are you currently or have you been suicidal in the past?: Yes - denies SI at this time Suicidal Intentional Rating Scale (SIRS): Suicidal thoughts (past) Physician Notification: If Active suicidal thoughts/Will not contract for safety is checked, contact physician and document in the Physician Notification section below. Past Psychiatric History - MH Treatment Hx Past Psychiatric Medications:: Wellbutrin Age of first mental health symptoms: Client states he started having panic attacks when he was 12 years old. Client states he had an episode of antwan when he was about 17, but his mom helped him through it and did not want him to be on medication. Client states recently he saw Dr. Tobar because he couldn't take it anymore and was trialed on different mental health medications and diagnosed as bipolar. Describe (age, circumstance, etc) any past hospitalizations: [facility] from 04/03 to 04/08 after dissociative episode where he cut his chest. Current providers for mental health treatment (counselor, psychiatrist, high risk case manager, etc.): None. Fall Risk Assessment - Age Age: Less than 60 - Mental Status Mental Status: Willing & able to ask for assistance when needed - Physical Status Physical Status: No problems - Impairments Impairments: None - Elimination Elimination: Continent AND independent - Gait or Balance Gait or Balance: Walks independently - Hx of Falls History of falls in the past 6 months: No known history - Medications/Substances Psychotropics:: Antidepressants, Mood stabilizers, Anxiolytics (e.g. benzodiazepines) Medications/substances used within the past 24 hours or ordered to administer: 3 or more of the medications/substances listed above - Total Score Total Points:: 2 RN Summary of Impressions - Impressions Recommendations: Include psychiatric and medical issues, treatment planning recommendations, and discharge planning needs. Impressions: Psychiatric Issues: Bipolar 1 disorder, most recent episode manic, severe with psychotic features; cannot rule out that manic episode was escalated or induced due to antidepressants; PTSD; panic disorder. - Level of Care How do the client's current symptoms and functional deficits support need for this level of care?: Client reports struggling for some time with mental health symptoms, and finally saw a doctor about it a couple of months ago and was started on medication. Client states he has had nightmares/night terrors for most of his life where he often wakes up screaming. Client reports a childhood with trauma. Client states he has been having panic attacks since he was about 12 years old that have gotten progressively worse. Client reports he is having panic attacks 4-5 times per day now. Client states since starting Klonopin a couple of months ago, panic attacks are lessened but still intense. Client reports diaphoresis, increased heart rate, hyperventilating, vomiting and sometimes passing out. Client reports only sleeping 2 hours in the past two days. When discussing incident that led him to being hospitalized at [facility], client states that he was napping and having a nightmare, and believes breaking the glass that he used to cut his chest was a way of trying to wake himself up. He does not think he was attempting suicide. Client states he had a suicidal plan a few months ago that he stated he was going to act upon if he didn't get himself help by the end of the year, but states he does not consider this a plan any longer and does not want to hurt himself. Client opptumistic about being in program and getting mental health help. PHP/IOP will promote gains and prevent further decompensation while providing social support and skills training.
[2020-04-13 11:43] VITALS: BP 133/74; PULSE 94
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
--- NOTE | 2020-04-13 13:26 | BH.PSY.EVA_ITS ---
Initial Treatment Plan - Patient Information Visit Information: ADMISSION DATE: EXPECTED LOS: 4-6 weeks - Problems/Symptoms Problem #1:: antwna history Symptom:: Biological disruption of sleep, racing thoughts, guilt, suicidal i deation Problem #2:: Anxiety Symptom:: Panic attack history, rumination
--- NOTE | 2020-04-13 13:26 | BH.DR.ITP ---
Initial Treatment Plan - Patient Information Visit Information: ADMISSION DATE: EXPECTED LOS: 4-6 weeks - Problems/Symptoms Problem #1:: antwan history Symptom:: Biological disruption of sleep, racing thoughts, guilt, suicidal ideation Problem #2:: Anxiety Symptom:: Panic attack history, rumination
--- NOTE | 2020-04-13 15:18 | BH.MDN ---
Multi-Disciplinary Note - Note 30-min Individual Time Started:: 12:10 Date: 04/13/20 Time Stopped:: 12:45
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
--- NOTE | 2020-04-15 11:18 | BH.SGPN.GN ---
Behaviors/Verbalizations/Mental Status: []Client alert and oriented, casual appearance. Eye contact good. Motor activity restless. Speech within normal limits. Affect unable to gather due to wearing a mask for COVID-19 protocol, mood irritable and agitated. Thoughts linear, logical, no signs of hallucinations or delusions Client Response/Progress/Benefit: []Client responded somewhat well to session, participating during the group activity and willing to complete the worksheet, but appeared agitated and short with responses. Client completed the fear of failure worksheet and reported that fear of failure has kept client from getting mental health help earlier. Client able to identify barriers that reinforce fear of failure which included: past failures and all or nothing thinking. Client attentive during discussion of the different strategies to help overcome fear of failure. Client selected the strategies of asking for help and keeping track of his wins. Client appeared to benefit from learning ways to overcome fear of failure. Progress limited as client reports lack of sleep which has been impacting client?s ability to manage emotions. Will continue PHP tx to prevent decompensation, maintain safety, and improve functioning. Narrative Note: []
--- NOTE | 2020-04-15 13:00 | BH.COMM ---
Communication Note - Communication with Client Communication Note: Pt reported to therapist today that he has not slept in 2 days. Called placed to psychiatrist Dr. Ortiz. She recommended that pt take an extra 100mg of Seroquel prior to bed. Recommendations given to pt who was agreeable. He stated during the conversation that the medication do make him drowsy however he often tries to stay awake. Some anxiety related to nightmares and recent dissociative episode during sleep. Educated that sleep is an extremely important factor for mental and phyiscal wellness. Stressed its importance.
--- NOTE | 2020-04-15 20:50 | BH.MDN ---
Multi-Disciplinary Note - Note 30-min Individual Time Started:: 12:20 Date: 04/15/20 Purpose of session/treatment goals addressed:: Purpose of session was to assess pt's current symptoms and stressors. Initial purpose of session was to continue working on anxiety reducing strategies however focus of session became on de-escalating patient. Eye Contact:: Poor Motor Activity:: Restless Appearance:: Disheveled Speech:: Rambling Mood:: Irritable Affect:: Labile Thoughts:: Racing, No evidence of hallucinations/delusions noted Staff Interventions:: Therapist used open ended questions to elicit pt's current symptoms and stressors. Therapist provided support by using active listening and validating emotions. Gently challenged pt's perspective that nothing is getting better. Assisted pt with de-escalating due to pt feeling extremely agitated at the beginning of session because frustrated with not getting sleep. Discussed sleep routine and encouarged pt to pay attention to his anxious thought patterns. Client Response:: Pt agitated at start of session stating that nothing is working and that he has just been wasting his time and money on things that don't help. Pt expressed extreme frustration that he hasn't slept in two days. Pt reported he feels exhausted at night but can't go to sleep. Pt reported he is taking his prescribed medication. During pt's frustrated ramblings he stated he should just get off his medication since it doesn't work anywasy. After some time pt started to de-escalate and seemed less agitated. Pt apologized for being rude. Pt stated he just needs some sleep. Pt became emotional when talking about having to go home to an empty house. Pt stated this makes his anxiety worse until his gets home. Pt identified today he would get his bloodwork done, go running, go to the gym and find other things to fill his time. Risks/Concerns:: Pt denied current suicidal thoughts, plan or intention. future focused. expressed ability to maintain safety. Progress Toward Goals/Plan:: Progress decompensating due to pt only getting 3 hours of sleep in the past 3 days. Pt's lack of sleep impacting pt's ability to function. Plan is to consult with [facility] psychiatrist about pt's lack of sleep. Pt to continue [facility] level of care to improve sleep quality, decrease anxious symptoms and prevent decompensation. Time Stopped:: 12:53
--- NOTE | 2020-04-16 11:22 | BH.SGPN.GN ---
Behaviors/Verbalizations/Mental Status: [] Client alert and orient. Appearance casual, and appropriately groomed. Speech an appropriate rate and tone Motor activity WNL. Mood anxious, euthymic, affect unable to determine as client wearing mask per COVID-19 protocol. No evidence of delusion or hallucinations.? Client Response/Progress/Benefit: [] Client an active participant throughout, did well to provide input and supportive feedback, as well as make personal connections with materials discussed. Client engaged in group discussion continuing to define the different cognitive distortions and ways in which each distorted thought pattern may impact mental health progress. Client taking notes during psychoeducation on T.H.I.N.K. (True, Helpful, Important, Necessary, Kind) acronym as a strategy for identifying and challenging distorted thought patterns. Indicated he often struggles with mind-reading or assuming his supports won?t want to help. Expressed he would like to begin asking himself ?Is this thought true?? to reduce catastrophizing and improve willingness to ask for help. Appeared to benefit from increasing insight into distorted thinking patterns, the impacts they have on mental health, and identifying possible strategies for beginning to reduce negative thoughts. Progress continues to be variable as client often struggles with emotion regulation related to lack of sleep. Recommended continued IOP tx to improve mood stability, promote healthy change behaviors, and prevent decompensation. Narrative Note: []
--- NOTE | 2020-04-16 15:42 | BH.MDN ---
Multi-Disciplinary Note - Note 30-min Individual Time Started:: 12:20 Date: 04/16/20 Time Stopped:: 12:52
--- NOTE | 2020-04-17 09:00 | BH.SGPN.GN ---
Behaviors/Verbalizations/Mental Status: [] Eye contact is good. Motor activity is appropriate. Appearance is casual. Speech is Appropriate. Mood is anxious. Affect is congruent. Thoughts are linear and logical. No evidence of psychosis. Reviewed daily check in sheet and no reports of suicidal ideations or intent. Client Response/Progress/Benefit: [] Pt was an active participant in group activities. Provided appropriate feedback to peers. Shared that he is anxious today and is worrying about the weekend. Pt is having family over for his son's b-day. Anxiety around preparing and catering to family. Group provided some suggestions for helping with anxiety during the event such as taking breaks, utilizing mindfulness, and reframing thoughts/expectations. Pt was receptive. Sleep is going well. Had a date night with last night which was positive. Progress noted per pt report. In good spirits today. Benefited from group support, encouragement, and feedback. Will continue in PHP to prevent decompensation, improve functioning, and stabilize mood. Narrative Note: []
--- NOTE | 2020-04-17 10:20 | BH.SGPN.GN ---
Behaviors/Verbalizations/Mental Status: []Client alert and oriented, neatly dressed and groomed. Eye contact good. Motor activity appropriate. Speech within normal limits. Affect unable to gather due to wearing a mask for COVID-19 protocol, mood euthymic. Thoughts linear, logical, no signs of hallucinations or delusions. Client Response/Progress/Benefit: []Client was an active participant AEB client providing input throughout discussion and attentively listening to peers. Client connected with how having a negative perspective can keep you stuck, prevent a person from getting help, and cause worsening mental health symptoms. Client stated, ?if you wake up looking for the bad, you?ll find it.? Client worked with group to identify how negative perspective can impact mental health which included: self-fulfilling prophecy, worse mood, and negative thinking.?Client helped group discuss ways a positive perspective can impact mental health such as: seeking treatment, challenging distortions, and improved mood. Client appeared to benefit from increasing understanding of mental health benefits of a positive perspective and potential consequences to progress when perspective is negative. Client will discharge from [facility] level of care and transition to [facility] tx to promote gains and further decrease intensity of symptoms. Narrative Note: []
--- NOTE | 2020-04-17 11:20 | BH.SGPN.GN ---
Behaviors/Verbalizations/Mental Status: [] Eye contact is good. Motor activity is appropriate. Appearance is casual. Speech is Appropriate. Mood is anxious. Affect is congruent. Thoughts are linear and logical. No evidence of psychosis. Client Response/Progress/Benefit: [] Pt was an active participant in group discussion. Attentive during psycho-education. Active participant in group discussion on the impact of perspective on how we view ourselves. Pt worked with the group to develop a working definition of the term strengths and the importance of recognizing one's strengths. Pt was given a worksheet and was asked to tling[place] & ha[place] at least 3 strengths which he completed. Group then worked together to identify strategies to remind themselves of their strengths which included; picking one strength per day, asking support to tell us one of our strengths, track our accomplishments, daily affirmations, and creating a gratitude journal. Progress noted. Benefited from increased awareness of the role of perspective and strengths in daily mental health wellness. Will continue in PHP to maintain safety, stabilize mood, and prevent decompensation. Narrative Note: []
--- NOTE | 2020-04-22 10:03 | BH.SGPN.GN ---
Behaviors/Verbalizations/Mental Status: []Client alert and oriented, casually dressed. Eye contact good. Motor activity appropriate. Speech within normal limits. Affect could not be assessed due to pt wearing a mask as a requirement during COVID-19 pandemic. Mood euthymic and anxious. Thoughts linear, logical, no signs of hallucinations or delusions. Client Response/Progress/Benefit: []Pt remained an active participant throughout session AEB pt providing input to discussion/asking questions, taking notes, and willing to complete worksheet. Group discussed impacts of anger on mental health and identified triggers of anger to include: feeling disrespected by others, feeling overwhelmed/stressed, high expectations of self, anxiety, grief, and feeling out of control. Pt shared connecting with topic of anger and noted that this is often how he expresses his emotions, specifically that of anxiety. Noted his anger often is internal in nature. Shared his emotions underlying anger include: anxiety/stress, guilt, and fear of the unknown. Group discussed common ways anger is expressed and Pt identified the following ways he expresses anger: being passive-aggressive, projecting on others, and negative self-talk. Pt seemed to benefit from increased awareness of how unmanaged anger can impact self and others. Progress noted in pt self-report of improved anxiety management, though continues to struggle with consistent skill application, emotional reasoning, and distorted thinking impacting progress. Pt to continue IOP to increase ability to challenge thoughts, increase internal healthy coping skills, improve communication with supports and prevent decompensation. Narrative Note: []
--- NOTE | 2020-04-22 12:02 | PCM.BH.PN_ITS ---
Progress Note Progress Note: History of Present Illness/Interim History: [] The patient is a 29-year-old male who was last seen by me about 1 week ago at the [facility] behavioral health IOP program. Patient is a history of bipolar disorder, PTSD, anxiety and traumatic brain injury. Patient had stated that his sleep remained decreased the end of last week and so a total of 200 mg of immediate release Seroquel was added to his nighttime regimen. Patient states that he took that added medication for 2 nights and then he slept well with that medication. He only took it 2 nights because he is afraid it makes him too tired to drive the next day. He says that his sleep is better now and he is getting about 6 hours a night in the past 5 or 6 days taking only the extended release Seroquel 300 mg nightly. He has only had 1 panic attack last week. And he used to get panic attacks daily. He has minimize his caffeine use down to 1 can of pop a day. He has no antwan symptoms at this time and feels much better. He denies hallucinations or delusions. He also denies suicidal or homicidal ideation. He obtained his laboratory but the results are pending. Current Psychiatric Medications: [] Prazosin 2 mg p.o. nightly; BuSpar 22.5 mg total daily; Paxil 10 mg nightly which was discontinued several weeks ago. Seroquel XR 300 mg p.o. nightly; Klonopin 0.5 mg p.o. twice daily only. Seroquel 100 mg: The patient takes 1-2 only on nights when he is unable to sleep which has not happened in the past 5 or 6 days. Mental Status Examination: [] Patient is a 29-year-old male who is normal for stated age and is seen wearing a hat and mask due to the pandemic. He is casually dressed and groomed with good hygiene. Eye contact is good and speech is normal rate and rhythm and fluent with no pressure. He is cooperative and pleasant during the interview. Mood is euthymic. Affect is full and normal. Thought processes goal-directed and organized. Thought content: There is no evidence of suicidal ideation, homicidal ideation, hallucinations or delusions. Judgment is intact. Insight: Some present. Impulsivity: Low to moderate. Diagnoses: [] [place] I: [] Bipolar 1 disorder, most recent episode manic, severe with psychotic features (resolving); manic episode possibly exacerbated or induced by antidepressant use; PTSD; panic disorder [place] II: [] Negative [place] III: [] History of traumatic brain injury and concussions [place] IV:[]] Primary support and work issues Plan: [] Patient will continue the IOP program at [facility] as the structure, support, education, individual and group therapy will hopefully prevent worsening of the patient's symptoms which might require hospitalization. The risks, options, possible complications and side effects of the medications were again discussed with the patient and he understands and accepts these. Patient felt safe during the interview and if it anytime he does not feel safe he will let us know or go to the emergency room. The patient will continue his current medication regiment and will continue to follow-up with his outpatient psychiatric and medical providers. He will continue to avoid caffeine use as much as possible and avoid antidepressant use.
--- NOTE | 2020-04-22 15:20 | BH.DS ---
Discharge Summary - Demographics Discharge Date: 04/22/20 - Treatment Discharge Handout: Complete Discharge Handout with client on aftercare options and continuity of care.
--- NOTE | 2020-04-22 15:20 | BH.MDN ---
Multi-Disciplinary Note - Note 30-min Individual Time Started:: 11:45 Date: 04/22/20 Time Stopped:: 12:15
== END 2020-04-22 14:00 | disposition home or self-care (01) ==
LOC: BHPHP 09:00
PROVIDERS: PCP Family Medicine; Referring Provider Psychiatry & Neurology Psychiatry; Visit Provider Psychiatry & Neurology Psychiatry
DX: F31.2 Bipolar disorder, current episode manic severe with psychotic features (principal); F43.10 Post-traumatic stress disorder, unspecified; F41.0 Panic disorder [episodic paroxysmal anxiety]; Z87.820 Personal history of traumatic brain injury; Z79.899 Other long term (current) drug therapy
CPT/HCPCS: H0035; 90832; 90834; G0410

== ENCOUNTER → 2020-04-15 13:14 | Outpatient (CLI) | payer BC, SELFPAY ==
[2020-04-03 14:06] VITALS: BMI 18.4
[2020-04-24 20:07] LABS: Metanephrine, Ur 33 ug/L (Undefined); Normetanephrines, 24Ur 113 ug/24 hr (110-553); Normetanephrines, Ur 47 ug/L (Undefined)
[2020-04-24 21:10] LABS: Metanephrines, 24Ur 79 ug/24 hr (58-276)
== END ==
PROVIDERS: PCP Family Medicine; Referring Provider Psychiatry & Neurology Psychiatry; Visit Provider Psychiatry & Neurology Psychiatry
DX: F41.0 Panic disorder [episodic paroxysmal anxiety] (principal)
CPT/HCPCS: 83835

== ENCOUNTER 2020-04-23 09:00 | Outpatient (RCR) | payer BC, SELFPAY ==
--- NOTE | 2020-04-23 09:00 | BH.SGPN.GN ---
Behaviors/Verbalizations/Mental Status: []Client alert and oriented, casually dressed. Eye contact good. Motor activity appropriate. Speech within normal limits. Affect unable to gather due to wearing a mask for COVID-19 protocol, mood anxious. Thoughts linear, logical, no signs of hallucinations or delusions. Reviewed client?s symptom tracker, no risk or plan for suicide ideation as of 04/23/20. Client Response/Progress/Benefit: []Client was cooperative and responded well to group AEB participation throughout group discussion. Client?s goal was to be kinder to himself as his biggest stressor is being unemployed and filling an empty schedule. Client shared he feels disappointed in himself as he is not financially contributing to his family income and will transfer money from his savings to feel like he is ?paying himself.? Client challenged his negative thoughts and group members offered positive feedback. Client stated he will work with his therapist to create a schedule to follow or create a list of things to do throughout the day. Client practices self-care daily through exercise. Client stated he hopes to go to the [employer] to volunteer as a way to spend his time. Client benefited from group as he connected with group members and increased self-awareness. Client will continue IOP to prevent decompensation and increase mood stability that has been impacting functioning. Narrative Note: []
--- NOTE | 2020-04-23 11:23 | BH.MDN ---
Multi-Disciplinary Note - Note 30-min Individual Time Started:: 10:55 Date: 04/23/20 Purpose of session/treatment goals addressed:: Pt left group and appeared anxious and upset. Eye Contact:: Good Motor Activity:: Restless Appearance:: Casual Speech:: Appropriate Mood:: Anxious Affect:: Congruent Thoughts:: Linear Staff Interventions:: Processed current stressor. Provided suggestions for reviewed current coping skills for anxiety/panic. Client Response:: Pt left group and went to the restroom. Per staff was visibly upset. This therapist met with patient after he left restroom to discuss distress. Pt stated just having a panic attack. Utilizing positive self-statements I'm fine ... it is what it is. Disclosed that he recieved a call from his father whom he has not talked with it almost 2 years. States that they have a complicated relationship however when they speak they are cordial. Ruminating on what the call was in regards too. States that he is having a hard time focusing in group and feels that he is being disruptive. Normalized thoughts and anxiety related to call from father. Receptive and shows insight. Able to see progress in that he has not had panic attack in several weeks. Requested to leave IOP early. Wants to ride his bike home to clear his mind and get some fresh air. Also states I have to return his call or I will ruminate on this all day. Able to see that call could be something simple as father calling to wish him happy b-day. Denies any SI, plan, or intent. No depressive symptoms stating he is just anxious regarding the call. We processed situation further and agreed to let him leave early. Thanks I will be here tomorrow once I get this fixed. Risks/Concerns:: No concerns noted. Denies SI, plan, or itent. Protective factors. Future-oriented. Progress noted in treatment as he was recently stepped down to IOP. Progress Toward Goals/Plan:: Progress noted since started [facility]. Pt was stepped down to IOP today due to his progress. Anxiety was triggered today by call from his father. His skills to manage anxiety have improved since this therapist witnessed previous panic attack on 04/09/20. Utilizing positive self-talk, insight that this anxiety will pass, and did not see this as regression. 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 Smiling. He requested to leave early to address the phone call and to utilize some coping skills. He felt this would be better option than continued counseling and sitting in group distracted and ruminating. No reason to keep him agaisnt his wishes. Encouraged him to utilize skills and will follow-up this afternoon. Time Stopped:: 11:20
--- NOTE | 2020-04-24 09:00 | BH.SGPN.GN ---
Behaviors/Verbalizations/Mental Status: []Client alert and oriented, casually dressed. Eye contact good. Motor activity appropriate. Speech within normal limits. Affect unable to gather due to wearing a mask for COVID-19 protocol, mood euthymic. Thoughts linear, logical, no signs of hallucinations or delusions. Reviewed client?s symptom tracker, no risk or plan for suicide ideation as of 04/24/20. Client Response/Progress/Benefit: []Client responded well to session, engaged and participated throughout discussion. Client shared feeling ?happy? as he reported having no identified stressors this morning. Client stated his goal has been to reduce the amount of exercise he completes daily as he recognized the importance of healthy versus unhealthy coping skills. Client benefited from group as he provided positive support and feedback to other group members. Client continues to struggle with finding balance and has ongoing issues with sleep inconsistency. Client will continue IOP to promote the use of healthy coping skills and to reduce emotional dysregulation. Narrative Note: []
--- NOTE | 2020-04-24 10:15 | BH.SGPN.GN ---
Behaviors/Verbalizations/Mental Status: []Client alert and oriented, casually dressed and appropriately groomed. Eye contact fair. Motor activity appropriate. Speech within normal limits. Affect constricted, mood anxious. Thoughts linear, logical, no signs of hallucinations or delusions. Client Response/Progress/Benefit: []Client engaged participant AEB client providing input at times during discussion and appeared to listen attentively to peers. Client worked with group to identified forces that can impact growth and overall mental health. Client stated sometimes a force that appears negative can result in a positive outcome. Client shared when he was pink slipped it felt like a negative at the time but now views the situation as a positive force that led him to getting help. Client identified his positive forces include: family, medication, friends, and goals. Pt stated negative forces to include: work, mental health, loss, and finances. Will continue in IOP to decrease anxious symptoms, increase healthy coping and prevent decompensation. Narrative Note: []
--- NOTE | 2020-04-24 11:19 | BH.SGPN.GN ---
Behaviors/Verbalizations/Mental Status: [] Eye contact is good. Motor activity is appropriate. Appearance is casual. Speech is Appropriate. Mood is euthymic. Affect congruent. Thoughts are linear and logical. No evidence of psychosis. Client Response/Progress/Benefit: [] Pt receptive of session, actively engaged throughout the activity, and provided input to discussion. Pt maintained a leadership role throughout the activity and provided supportive feedback to peers. Group processed the challenge activity and identified positive and negative forces impacting ability to complete the challenge. Pt reflected upon the impact of unexpected distractions and restrictions on further complicating group success. Shared he used positive self-talk and active communication to overcome identified obstacles. She was attentive during psychoeducation, asking questions and appeared to benefit from increased insight on the impact of negative and positive forces on his own mental wellness. Identified wanting to continue to improve use of therapy as a positive forces in his life by continuing to attend IOP tx and honestly share with his supports. Progress noted in pt self-report of improved anxiety management, though continues to struggle with mood dysregulation which has impacted overall progress at times. Pt recommended continued IOP tx to promote mood stability, increase active utilization of healthy coping skills, and prevent decompensation. Narrative Note: []
--- NOTE | 2020-04-28 09:01 | BH.SGPN.GN ---
Behaviors/Verbalizations/Mental Status: []Client alert and oriented, casually dressed and groomed. Eye contact good. Motor activity appropriate. Speech within normal limits. Affect congruent, mood agitated, dysthymic. Thoughts linear, logical, no signs of hallucinations or delusions. Reviewed client?s symptom tracker, no risk for suicidal ideation noted as of 04/28/20. Client Response/Progress/Benefit: []Client receptive to session, willing to engaged in discussion. Client reports feeling agitated? this morning. Attributes current emotions to ongoing difficulties in managing his irritability, lack of sleep, as well as not actively applying his healthy coping skills. Noted ?I just need to take this time to call myself out? and expressed that he has been going through a cycle of pretending everything is ?fine? when it?s not and then ?blowing up? only to pretend it?s fine again. Shared ?I don?t want to keep going through the motions? and expressed that he feels it is time to really start making a more active effort in addressing his mental health needs. Client struggled to identify current positives, however, was able to identify that coming to group and holding himself accountable are two positive steps towards making healthy changes. Receptive of supportive feedback and appeared to benefit from group support and positive feedback. Continues to struggle with significant anxiety and distorted thoughts impacting progress. Will continue IOP tx to prevent decompensation, continue to promote mood stability, and further improve stress management. Narrative Note: []
--- NOTE | 2020-04-28 11:19 | BH.SGPN.GN ---
Behaviors/Verbalizations/Mental Status: []Client alert and oriented, neatly dressed and groomed. Eye contact good. Motor activity appropriate. Speech within normal limits. Affect constricted, mood anxious. Client Response/Progress/Benefit: []Client responded well to session, connecting with peers and receptive to supportive statements. Client engaged in the boundary self-assessment activity and attentive during psychoeducation on the different boundary styles. Client reported ?I get flopped all around with these boundaries and it?s disorienting.? Client states belief that he is rigid during the week and porous on the weekends. Client reported having inconsistent boundaries causes client to doubt himself and struggle with communication. Client participated in brainstorming strategies to improve boundary setting but left before sharing what strategy he would like to try. Progress noted as client has become less anxious in the group setting. Will continue IOP tx to monitor sleep and medications, improve daily functioning, and reduce negative thinking. Narrative Note: []
--- NOTE | 2020-04-28 15:43 | BH.MDN ---
Multi-Disciplinary Note - Note 45-min Individual Time Started:: 10:17 Date: 04/28/20 Time Stopped:: 11:11
--- NOTE | 2020-04-29 09:02 | BH.SGPN.GN ---
Behaviors/Verbalizations/Mental Status: []Client alert and oriented, neatly dressed and groomed. Eye contact good. Motor activity restless. Speech within normal limits. Affect constricted, mood anxious Thoughts linear, logical, no signs of hallucinations or delusions. Reviewed client?s symptom tracker, no risk for suicidal ideation, plan, or intent as of 04/29/20. Client Response/Progress/Benefit: []Client entered session alert and oriented, but appeared highly anxious AEB shaking his leg and adjusting in his seat. Client stated he is feeling anxious this morning as client plans to meet with the [facility] psychiatrist today to advocate for himself regarding medications. Client reported he has white coat syndrome and has severe anxiety for years when meeting with doctors. The group gave client numerous ideas to help reduce anxiety and help client feel empowered. Client was receptive and reports he plans to write out what he wants to ask and tell the psychiatrist so client does not freeze and forget during session. Client reported he continues to struggle with sleep issues. Appeared to benefit from identifying solutions to manage anxiety. Will continue IOP tx as client continues to struggle with poor sleep, mood instability, and negative thinking. Narrative Note: []
--- NOTE | 2020-04-29 12:47 | PCM.BH.PN ---
Progress Note Progress Note: History of Present Illness/Interim History: [] Patient is a 29-year-old male who is seen in follow-up at the [place] [facility] program. The patient has a history of bipolar disorder, PTSD, anxiety and traumatic brain injury. I last saw the patient 1 week ago. The patient is transitioning to day from [facility] to the IOP program as his symptoms have improved. He feels he is benefiting from the program. He states that he is much improved in the last week or so. His mood is better but he still has some depression. He still has some anxiety and did have a panic attack about twice last week. However he stopped his Klonopin completely over a week ago. He is taking the BuSpar but does not feel it helps him at all. He stopped his Seroquel XR 300 mg nightly completely about a week ago. After he saw me. He is taking only now 50 mg of regular Seroquel at bedtime. He then eliminated this and said he even slept well all night the past few nights without taking any Seroquel. He wishes to get on a medication that he still says will manage his bipolar disorder long-term. He says his sleep is good now about 7 hours a night. He has not using any caffeine anymore. He denies hallucinations or delusions. He denies suicidal or homicidal ideation. Current Psychiatric Medications: [] Prazosin 2 mg p.o. nightly; BuSpar 22.5 mg total daily; Seroquel 50 mg p.o. nightly (stopped this 2 nights ago). Laboratories: The patient's metanephrine level came back within normal limits. Mental Status Examination: [] Patient is a 29-year-old male who appears normal for stated age and is wearing a mask due to the pandemic. He is casually dressed and groomed with good hygiene. His eye contact is good and his speech is normal rate and rhythm and fluent with no pressure. He is cooperative and pleasant during the interview. Mood is euthymic to mildly depressed. Affect is full and normal. Thought process is goal-directed and organized. Thought content: There is no evidence of suicidal or homicidal ideation, hallucinations or delusions. Judgment is intact. Insight: Improving. Impulsivity: Low to moderate Diagnoses: [] . [place] I: [] Bipolar 1 disorder, most recent episode manic, severe with psychotic features (resolving); manic episode probably exacerbated or induced by antidepressant use; PTSD; panic disorder [place] II: [] Deferred [place] III: [] History of traumatic brain injury and concussions [place] IV:[]] Primary support and work issues Plan: [] The patient will continue the IOP program at [facility] as the structure, support, education, individual and group therapy will hopefully prevent worsening of the patient's symptoms which might require hospitalization. The risk, options, possible complications and side effects of the medications were again discussed with the patient and he understands and accepts these. The patient felt safe during the interview and if at any time he does not feel safe he will let us know or go to the emergency room. Long discussion was had with the patient about his options for a longer term medication regimen to treat his bipolar disorder and his anxiety. The patient was given the option of Depakote extended release which would help control his bipolar disorder and would probably help his occasional anger outbursts which might be secondary to his traumatic brain injury. Another option was Latuda, asenapine or other second-generation antipsychotic. The patient elects to try Latuda 60 mg p.o. nightly taken with food at dinner. He understands he needs to have at least 400 redd of food or more to absorb the medication. He will see me in follow-up in 2 weeks if he tolerates the medication. I will see him in 1 week if he is unable to tolerate the Latuda. He understands it will take a while to know for sure if the medication is controlling his bipolar 1 disorder. He is counseled not to go off the medications on his own anymore.
--- NOTE | 2020-04-29 12:55 | BH.DR.ITP ---
Initial Treatment Plan - Patient Information Visit Information: ADMISSION DATE: EXPECTED LOS: 4-6 weeks - Problems/Symptoms Problem #1:: Mood disruption Symptom:: sadness, irritability, biological disruption of sleep,fatigue Problem #2:: Anxiety Symptom:: Rumination, panic attacks, restlessness
== END 2020-05-02 23:59 ==
LOC: BHIOP 09:00
PROVIDERS: PCP Family Medicine; Referring Provider Psychiatry & Neurology Psychiatry; Visit Provider Psychiatry & Neurology Psychiatry
DX: F31.2 Bipolar disorder, current episode manic severe with psychotic features (principal); F43.10 Post-traumatic stress disorder, unspecified; F41.9 Anxiety disorder, unspecified; Z79.899 Other long term (current) drug therapy; Z87.820 Personal history of traumatic brain injury
CPT/HCPCS: H0035; 90832; 90837; 90853

== ENCOUNTER 2020-05-04 09:00 | Outpatient (RCR) | payer BC, SELFPAY ==
--- NOTE | 2020-05-04 09:02 | BH.SGPN.GN ---
Behaviors/Verbalizations/Mental Status: []Client alert and oriented, casual dress, hygiene tended to. Eye contact fair. Motor activity restless AEB pt's leg shaking throughout session. Speech within normal limits. Affect congruent, mood euthymic. Thoughts linear, logical, no signs of hallucinations or delusions. Reviewed client?s symptom tracker, pt denies current suicidal thoughts or intention to date. Client Response/Progress/Benefit: [] Patient seen responded well to session as evidenced by him listening to others and sharing thoughts and feelings. Patient stated he has been feeling extremely anxious because just wants to start the process of changing his medications. Patient explained he is waiting for his new medication to arrive pharmacy which he said is making him anxious to wait. Patient stated he did have some struggles last night when he went [id number] with his children. Patient reported he was unable to be in the moment because just anxious with all the people around. Patient stated he recognizes that yesterday he had bad moments and it was not a bad day. Patient identified a positive was being able to relax yesterday. Stated he utilized the skills of breathing and being active. Progress noted with patient reframing his thought pattern and recognizing having bad moments does not equate to a bad day. Patient to continue IOP level of care to stabilize moods, decrease anxiety, and prevent decompensation. Narrative Note: []
--- NOTE | 2020-05-04 10:14 | BH.SGPN.GN ---
Behaviors/Verbalizations/Mental Status: []Client alert and orient. Appearance casual and appropriately groomed. Speech an appropriate rate and tone. Eye contact good. Motor activity appropriate. Mood dysthymic and anxious, affect congruent. No evidence of delusion or hallucinations.? Client Response/Progress/Benefit: []Client responded well to session, attentive and contributing to discussion throughout. Client engaged as group discussed benefits of healthy communication on mental health. Benefits included: helps us relate to others, feedback on how we?re doing, needs get met, and more able to express ourselves. Group additionally discussed potential barriers to communication including: tone, communicating with behaviors or body language, assumptions, communicating when angry or sad/emotionally overwhelmed, and past experiences. Client discussed that for him anger has been a barrier as he typically lashes out and then shuts down which prevents from truly getting his needs met or connecting with his supports in meaningful ways. Attentive during psychoeducation on the four communication styles. Client self-reports identifying most with the aggressive communication style, noting that he believes this was a learned style of communication he developed from a young age. Discussed that this has led to conflict during times in which he was trying to avoid confrontation. Progress noted in increased insight into personal communication styles and barriers, as well as improved application of self-care skills outside of treatment setting. Client to continue in IOP tx prevent decompensation, improve application of emotion regulation skills, and continue to reduce anxiety. Narrative Note: []
--- NOTE | 2020-05-04 11:17 | BH.SGPN.GN ---
Behaviors/Verbalizations/Mental Status: []Client alert and oriented, neatly dressed and groomed. Eye contact fair. Motor activity appropriate. Speech within normal limits. Affect constricted, mood agitated. Thoughts linear, logical, no signs of hallucinations or delusions. Client Response/Progress/Benefit: []Client responded well to session, listening attentively to others and providing input throughout. Engaged in discussion continuing to review the different communication styles. Attentive during psychoeducation reviewing the assertive communication strategy АлександрR Candi. Client reports wanting to work on being mindful that he stays on track when communicating with others. Client stated this will help client focus on the issue at hand. Client seemed to benefit from increasing awareness of healthy strategies to improve communication. Client showing progress AEB increased self-awareness and sleep. Will continue IOP tx to prevent decompensation, improve emotional regulation, and reduce negative thinking. Narrative Note: []
--- NOTE | 2020-05-06 09:00 | BH.SGPN.GN ---
Behaviors/Verbalizations/Mental Status: []Client alert and oriented, casually dressed and groomed. Eye contact fair to good. Motor activity WNL. Speech within normal limits. Affect congruent, mood dysthymic. Thoughts linear, logical, no signs of hallucinations or delusions. Reviewed client?s symptom tracker, no risk for suicidal ideation, plan, or intent as of 05/06/20. Client Response/Progress/Benefit: []Pt responded well to session, actively listening throughout and openly processed with group. Pt reports feeling ?stressed? this morning as he continues to struggle with sleep. Noted this continues to impact mood management and ability to remain present which has been an ongoing stressor for himself. Noted trying to remind himself ?you?ve gotten better in the past when things were worse, you can do it again?. Pt shared current positives as continuing to maintain his anxiety management plan to exercise and reduce caffeine, as well as making the effort to attend his daughter?s school concert despite running on limited sleep. Progress remains variable as pt ongoing sleep issues continue to impact ability to consistently apply skills or manage moods. Recommended continued IOP tx to further continue to promote continued application of emotion regulation and self-care skills, improve stability, as well as prevent decompensation. Narrative Note: []
--- NOTE | 2020-05-06 10:17 | BH.SGPN.GN ---
Behaviors/Verbalizations/Mental Status: []Client alert and oriented, casually dressed and groomed. Eye contact fair. Motor activity appropriate. Speech within normal limits. Affect constricted, mood dysthymic. Thoughts linear, logical, no signs of hallucinations or delusions. Client Response/Progress/Benefit: []Client an active participant during group AEB client contributing input to discussion, able to make connections throughout. Client agreed with group that it is important to have a variety of social supports, but client shared ?I?ve always struggled with asking for help.? Group identified benefits of social support as not feeling alone, gaining different perspectives, and having accountability. Client also helped group identify barriers to using support such as negative thinking and bad past experiences. Appeared to benefit from gaining awareness of barriers that keep people from seeking social support as well as identifying the benefits of increasing support. Client progress noted AEB client?s report of increased self-awareness, however client continues to struggle with inconstant use of healthy coping skills which could hinder progress. Narrative Note: []
--- NOTE | 2020-05-06 15:22 | BH.MDN ---
Multi-Disciplinary Note - Note 30-min Individual Time Started:: 12:30 Date: 05/06/20 Time Stopped:: 13:00
--- NOTE | 2020-05-15 09:00 | BH.SGPN.GN ---
Behaviors/Verbalizations/Mental Status: []Client alert and oriented, casually dressed. Eye contact good. Motor activity appropriate. Speech within normal limits. Affect full, mood anxious and euthymic. Thoughts linear, logical, no signs of hallucinations or delusions. Reviewed client?s symptom tracker, no risk or plan for suicide ideation as of 05/15/20. Client Response/Progress/Benefit: []Client responded well to session, engaged and participated throughout discussion. Client reported feeling ?anxious? as he overcame many stressors this week at work. Client shared some events that took place to where he had to challenge negative thinking and use healthy coping skills like drawing, deep breathing, using medications, and challenging negative thoughts. Client was excited to be home from work to spend quality time with his and children. Progress noted as client was able to overcome stressors and use healthy coping skills. Client will continue IOP to increase the use of healthy coping skills and improve daily functioning. Narrative Note: []
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
--- NOTE | 2020-05-20 09:05 | BH.SGPN.GN ---
Behaviors/Verbalizations/Mental Status: [] Eye contact is good. Motor activity is appropriate. Appearance is casual. Speech is Appropriate. Mood is anxious. Affect is congruent. Thoughts are linear and logical. No evidence of psychosis. Reviewed daily check in sheet and no reports of suicidal ideations or intent. Client Response/Progress/Benefit: [] Pt participated at times during group discussion. Distracted during group discussions. Pt was restless and fidgety. Pt reports that overall his panic attacks have decreased however he believes that he has panic symptoms consistently after taking his medications. He believes there is a correlation. These panicky symptoms last about an hour and then he is able to sleep. Reports increased irritability and anger throughout the day as well. Reports short fuse with no trigger. Some contradicting statements as he says he has always had anger issues. Continues with daily routines and overall notes improvement. Focused on medication today however will be meeting with program psychiatrist today to address these concerns. Progress noted per pt. Benefited from group support and encouragement. Will continue in IOP to maintain safety, stabilize mood and medications, and improve overall functioning. Narrative Note: []
--- NOTE | 2020-05-20 10:20 | BH.SGPN.GN ---
Behaviors/Verbalizations/Mental Status: []Client alert and oriented, neatly dressed and groomed. Eye contact fair. Motor activity appropriate. Speech within normal limits. Affect constricted, mood euthymic. Thoughts linear, logical, no signs of hallucinations or delusions. Client Response/Progress/Benefit: []Client responded somewhat well to session, attentive during discussion and engaged during the activity, but quiet. Group reported even though change can be scary, change can be positive. Discussed how change can lead to improved mental health and personal safety. Worked with the group to identify barriers to making change, which included: fear of failure, uncomfortable emotions, and putting others first. Client participated in the activity where they identified and discussed the emotions related to change. Benefited from increased awareness and understanding of emotions, benefits, and barriers related to change. Progress difficult to measure due to client?s limited attendance recently. Will continue IOP tx to promote the use of unhealthy coping skills, improve mood stability, and monitor medications. Narrative Note: []
--- NOTE | 2020-05-20 12:04 | PCM.BH.PN ---
Progress Note Progress Note: History of Present Illness/Interim History: [] The patient is a 29-year-old male who is seen in follow-up at the [facility] behavioral health IOP program. Patient has a history of bipolar disorder, PTSD, anxiety and traumatic brain injury. I last saw the patient 2 weeks ago and at that time he was started on Latuda and 1 week ago his Latuda was increased to 80 mg at bedtime. The patient states that every night when he takes his Latuda at dinner with food he feels extremely anxious for about an hour like his skin is crawling. He finds this very unpleasant and does not wish to stay on Latuda. He has occasional panic attacks now about once or twice a day. His anger outburst had gone away but he says that in the past week or so they have come back to some extent. He was taking Klonopin that he had from an old prescription about 1 every other day 0.5 mg but he ran ran out of this but does not feel that this is related to his side effects on Latuda. His sleep is good now about 7 hours a night. He denies using any caffeine. He denies hallucinations, delusions, suicidal or homicidal ideation. He wishes to come off Latuda and feels actually that the Seroquel was more helpful for him and desires to return to this medication. Current Psychiatric Medications: [] Prazosin 2 mg p.o. nightly; Latuda 80 mg p.o. at dinner with food (x1 week). Mental Status Examination: [] Patient is a 29-year-old male who appears normal for stated age and is wearing a mask due to the pandemic. He is casually dressed and groomed with good hygiene. He has no psychomotor agitation or retardation. Eye contact is good and speech is normal rate and rhythm and fluent with no pressure. He is cooperative during the interview. Mood is euthymic. Affect is full and normal. Thought process is goal-directed and organized. Thought content: No evidence of suicidal or homicidal ideation, hallucinations or delusions. Judgment is intact. Insight: Limited but improving. Impulsivity: Low to moderate. Diagnoses: [] [employer] [place]: [] Bipolar 1 disorder, most recent episode manic, severe with psychotic features (resolving); manic episode probably exacerbated or induced by antidepressant use; PTSD; panic disorder [employer] [place]: [] Deferred [employer]: [] History of traumatic brain injury [employer] [place] IV:[]] Primary support and work issues Plan: [] The patient will continue the IOP program at [facility] as the structure, support, education, individual and group therapy will hopefully prevent worsening of the patient's symptoms. He felt safe during the interview and if at any time he does not feel safe he will let us know or go to the emergency room. The risks, options, possible complications and side effects of the medications were again discussed with the patient and he understands and accepts these. He will stop his Latuda. He will restarts his Seroquel XR that he has at home. He will take 100 mg tonight at bedtime and will increase this to 200 mg tomorrow night at bedtime. If he continues to have trouble over the next few days with sleep and anxiety he will increase his Seroquel XR to 300 mg p.o. nightly. I will see the patient in 2 weeks for follow-up. He will continue to follow-up with his outpatient psychiatric and medical providers.
--- NOTE | 2020-05-21 09:00 | BH.SGPN.GN ---
Behaviors/Verbalizations/Mental Status: []Client alert and oriented, casually dressed. Eye contact good. Motor activity appropriate. Speech within normal limits. Affect flat, mood anxious. Thoughts linear, logical, no signs of hallucinations or delusions. Reviewed client?s symptom tracker, no risk or plan for suicide ideation as of 05/21/20. Client Response/Progress/Benefit: []Client responded well to session, participated in self-check in, and listened to other group members share throughout discussion. Client reported feeling ?hopeful and positive? after sharing he has experienced a change in his medication which has made his mood ?bounce all over the place.? Client shared his new goal has been to work on stabilizing his mood and client has used grounding techniques like breathing, leaving situations, and using journaling as healthy coping skills. Client benefited from group as other group members could relate to change of medications as well as changes in moods. Client will continue IOP to improve daily functioning and continue the use of healthy coping skills. Narrative Note: []
--- NOTE | 2020-05-21 10:10 | BH.SGPN.GN ---
Behaviors/Verbalizations/Mental Status: []Client alert and oriented, casually dressed, hygiene appeared to be tended to. Eye contact fair. Motor activity appropriate. Speech within normal limits. Affect flat, mood anxious. Thoughts linear, logical, no signs of hallucinations or delusions. Client Response/Progress/Benefit: []Client responded well to session, engaged in group activity, but did not participate in discussion. The group concluded many impacts of fear of failure: cognitive distortions increase, keeps us from trying something new, keeps us from revisiting previous experiences, fear of judgement from others or forming new relationships. Client declined to share personal examples of the impact of fear of failure. Client appeared to benefit from gaining awareness of the impact fear of failure can have on one?s mental health and wellbeing. Client will continue IOP to improve daily functioning and continue the use of healthy coping skills. Narrative Note: []
--- NOTE | 2020-05-21 11:13 | BH.SGPN.GN ---
Behaviors/Verbalizations/Mental Status: []Client alert and oriented, casual appearance. Eye contact fair. Motor activity appropriate. Speech within normal limits. Affect constricted, mood irritable. Thoughts linear, logical, no signs of hallucinations or delusions Client Response/Progress/Benefit: []Client responded well to session, participating during the group activity. Client completed the fear of failure worksheet and reported that fear of failure has kept client from trying new things. Client able to identify barriers that reinforce fear of failure which included: guilt, negative self-talk, past failures, and fear of judgement. Client attentive during discussion of the different strategies to help overcome fear of failure. Group identified strategies and client selected catching negative thoughts and practicing self-compassionate statements. Client appeared to benefit from learning ways to overcome fear of failure. Will continue IOP tx to promote mood stability and reduce distorted thought patterns. Narrative Note: []
--- NOTE | 2020-05-25 09:00 | BH.SGPN.GN ---
This psychotherapy group was provided via telehealth using two-way, real-time interactive telecommunication technology between the patients and the provider. The interactive telecommunication technology included audio and video. The patient was offered telemedicine as an option for care delivery during the COVID-19 pandemic and consented to this option. Patient location: [place] Provider located at [facility] Behaviors/Verbalizations/Mental Status: []Client alert and oriented, casually dressed. Eye contact poor. Motor activity appropriate. Speech within normal limits. Affect constricted, mood anxious. Thoughts linear, logical, no signs of hallucinations or delusions. Reviewed client?s symptom tracker, no risk or plan for suicide ideation as of 05/25/20. Client Response/Progress/Benefit: []Client responded well to session, actively listened to others' share and engaged with self check-in. Client was distracted, AEB client being home and joining group via telehealth and kids being home. Client reported chaos taking place as he got a puppy over the weekend. Shared he will continue practicing self-care as he spends quality time with his family. Client benefited from group as he was able to still participate at home and provide feedback to other group members. Client will continue IOP to continue the use of healthy coping skills and improve daily functioning. Narrative Note: []
--- NOTE | 2020-06-04 13:35 | BH.DS ---
Discharge Summary - Demographics Date of Admission:: 04/23/20 Discharge Date: 06/04/20 Presenting Problems at Admission:: The patient has a history of bipolar disorder, PTSD, anxiety and traumatic brain injury. At admission pt was transitioning from [facility] to IOP program as his symptoms had improved. Pt stated he is benefiting from the program. At admission pt stated he has had improvement with sleep, more stable mood, and decrease in panic attacks. Pt endorsed continuing to have depressive symptoms, panic attacks about twice a week, and irritabilty at times. Sleep improved in the past week but tends to have inconsistencies with this. At admission denied suicidal ideaion, plan or intention to date. Discharge Diagnoses:: 31.5 Bipolar 1 disorder, most recent episode manic, severe with psychotic features (resolving); manic episode probably exacerbated or induced by antidepressant use; PTSD; panic disorder Reason for Discharge:: Pt has stopped attending [facility] on 05/25/20 on his own accord. Pt had stated he needed to be off IOP from 05/23/20-05/27/20 due to closure with his children's daycare. However pt has not returned phone calls for pt to return to [facility]. Due to pt not attending [facility] or returning phone calls since 05/25/20 pt will be discharged from [facility] today. - Treatment Progress During Treatment & Response: Pt has shown progress with reporting improved sleep, mood stability, and increased use of healthy coping skills. Pt has reported decrease in night terrors that disrupt his overall sleep quality. Pt did have medication changes towards middle of IOP but the medication did not seem to help so pt has switched back to Seroquel. Pt response to treatment was inconsistent AEB pt at times being engaged in group session and other times appearing disengaged. Pt attendance was variable as well. Pt seemed to engage most in individual counseling with improved follow through on completing homework. Issues Still to be Addressed:: Pt could benefit from continued reinforcement of healthy coping skills and incorporating mindfulness into his daily practice. Pt would benefit from improving his view of self by identifying core negative beliefs and challenging those beliefs. to be more rational and realistic. Pt needs continued work with indentifying and reframing distorted thought patterns. Pt's anxious thoughts tend to negatively impact his sleep patterns so he could benefit from learning more strategies to manage anxious thoughts and physiological symptoms. Discharge Recommendations/Instructions:: Pt is recommended to continue to follow up with outpatient primary care physician for medication maangement. Due to pt not returning to program on his own accord and not returning phone calls it was not possible to establish him with an outpatient counselor or outpatient psychiatrist. Discharge Handout: Complete Discharge Handout with client on aftercare options and continuity of care.
== END 2020-06-04 14:00 | disposition home or self-care (01) ==
LOC: BHIOP 09:00
PROVIDERS: PCP Family Medicine; Referring Provider Psychiatry & Neurology Psychiatry; Visit Provider Psychiatry & Neurology Psychiatry
DX: F31.2 Bipolar disorder, current episode manic severe with psychotic features (principal); F43.10 Post-traumatic stress disorder, unspecified; F41.0 Panic disorder [episodic paroxysmal anxiety]; Z79.899 Other long term (current) drug therapy
CPT/HCPCS: H0035; 90832; 90834; 90853

== ENCOUNTER 2022-09-29 04:25 | Emergency (ER) | payer OTHER, SELFPAY ==
[2022-09-29 04:25] VITALS: BP 108/93; PULSE 77; RESP 15; TEMP 36.6; O2SAT 99; BMI 21.4
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
[2022-09-29 05:25] VITALS: BP 108/93; PULSE 77; RESP 15; O2SAT 99
== END 2022-09-29 05:27 | disposition home or self-care (01) ==
PROVIDERS: Emergency Provider Emergency Medicine; PCP Family Medicine; Visit Provider Emergency Medicine
DX: M54.12 Radiculopathy, cervical region (principal)
CPT/HCPCS: 99282

== ENCOUNTER 2024-01-20 11:51 | Emergency (ER) | payer OTHER, SELFPAY ==
[2024-01-20 11:51] VITALS: BP 116/78; PULSE 71; RESP 14; TEMP 36.6; O2SAT 98; BMI 20.1
--- NOTE | 2024-01-20 12:06 | EDS_ITS ---
HPI History of Present Illness Chief Complaint: Back Detail of Chief Complaint: Back injury Informant: patient Narrative Narrative: Patient presents to the emergency department with complaint of a back injury that occurred 20 minutes ago. Patient states he was wrestling with another individual at [facility] when he was folded and his buttock struck the ground first while his chest proceeded towards the floor and he felt a pop in his back. They immediately stopped the wrestling. He was able to ambulate. He denies any pain down the legs. He denies numbness or tingling in the legs. Denies weakness in the legs. Patient describes a tightness in his mid back and some mild discomfort with breathing. Does not really feel short of breath. He is not sure if he cracked a rib possibly. [facility] Medical History Bipolar 1 disorder Panic disorder PTSD (post-traumatic stress disorder) Home Medications ?Medication ?Instructions ?Recorded ?Last Taken ?Type buspirone 15 mg tablet 22.5 mg PO BID 04/13/20 Unknown History clonazepam 0.5 mg tablet 0.5 mg PO TID 04/13/20 Unknown History prazosin 2 mg capsule 2 mg PO QHS 04/13/20 Unknown History Quetiapine Fumarate [Seroquel Xr] 100 mg PO DAILY 05/20/20 Unknown History prednisone 20 mg tablet 40 mg (2 x 20 mg) PO DAILY #10 09/29/22 Unknown Rx TABLETS cyclobenzaprine 10 mg tablet 10 mg PO TID PRN Muscle Spasm #20 01/20/24 Unknown Rx TABLETS naproxen 500 mg tablet (Naprosyn) 500 mg PO BID PRN pain #20 tabs 01/20/24 Unknown Rx Allergy/AdvReac Type Severity Reaction Status Date / Time No Known Allergies Allergy Verified 01/20/24 11:52 Social History Smoking Status: Never smoker ROS ROS ED Review of Systems ROS Unobtainable: other Constitutional Constitutional ED: Reports lethargy; Denies chills, fever(s), sweats or weight loss Eyes Eyes: Denies blurry vision, change in vision or diplopia ENT ENT ED: Denies rhinorrhea or sore throat Cardiovascular Cardiovascular: Denies chest pain, orthopnea or racing heartbeat Respiratory/Chest Respiratory/Chest: Denies cough, dyspnea, dyspnea on exertion, orthopnea or sputum Gastrointestinal Gastrointestinal: Denies abdominal pain, diarrhea, nausea or vomiting Genitourinary Genitourinary ED: Denies dysuria, hematuria or urinary frequency Musculoskeletal Musculoskeletal: Reports back pain; Denies arthralgias, myalgias or neck pain Integumentary Denies abscess, Abrasions or rash Neurologic Neurologic: Denies headache(s) or weakness Psychiatric Psychiatric: Denies anxiety, depression or suicidal thoughts Endocrine Endocrinology: Denies polydipsia, polyphagia or polyuria Hematologic/Lymphatic Hematologic/Lymphatic: Denies easy bleeding, easy bruising or lymphadenopathy Allergic/Immunologic Allergic/Immunologic ED: Denies mouth swelling, tongue swelling or urticaria EXAM Physical Exam Const Vital Signs: 01/20/24 11:51 Temperature 98 F Temperature Source Temporal Pulse Rate 71 Respiratory Rate 14 Blood Pressure 116/78 Blood Pressure Mean 90 Pulse Ox 98 Oxygen Delivery Method Room Air Positive well nourished and well developed General Appearance ED: well developed and NAD HEENT Reports TM's clear and moist mucous membranes normocephalic and atraumatic; Negative for trauma or tenderness Tympanic Membrane ED: Yes TM's clear Eyes PERRL and EOMs intact bilaterally General Eye ED: Negative for pale conjunctiva or scleral icterus Neck no lymphadenopathy, supple and no JVD General: Negative for tenderness Chest Wall inspection of chest normal and palpation of chest normal Chest: Negative for tenderness Resp normal respiratory effort and clear to auscultation bilaterally Resp Narrative: Evaluation of the chest wall reveals no significant tenderness of the ribs on exam. No crepitus or subcu emphysema Effort and Inspection: Negative for respiratory distress or pain with movement Auscultation: Negative for rhonchi, wheezes or diminished lung sounds Cardio regular rate, regular rhythm, S1 normal heart sound, S2 normal heart sound and no murmurs Peripheral Pulses: pulses 2+ throughout GI normal to inspection, nondistended, normoactive bowel sounds, soft to palpation, non-tender, non-distended and no masses Back/Spine no CVA tenderness and no thoracic nor lumbar tenderness Back/Spine Narrative: Mild diffuse tenderness over the mid thoracic down to the lumbar spine. There is no bony step-offs or depressions. No ecchymosis or bruising. Negative straight leg raises. Deep tendon reflexes plus 2 out of 4 bilaterally at the patella and Achilles. Patient has normal 5 extension bilaterally. He has normal sensation to light touch. Extremity normal to inspection General Extremety ED: Negative for edema General Extremity: Negative for edema Neuro oriented x3, CN's II-XII intact bilaterally, no sensory deficits noted and gait normal Sensorium / Orientation: awake, alert, oriented to person, oriented to place and oriented to time Motor Exam: strength 5/5 throughout and strength abnormal Psych mental status grossly normal Skin no rashes or lesions noted and no wounds MDM MDM MDM Narrative Medical decision making narrative: Patient presents with back and chest injury. Clinically looks well. He had x-rays of the chest 2 views that were unremarkable. X-rays of the thoracic and lumbar spine on my interpretation showed no evidence of fracture or dislocation. Radiology did feel there was compression of T7 and T11 anterior wedging however unclear as age this may be chronic. Patient really clinically does not have a lot of discomfort when I palpate those areas as a matter fact does not have discomfort over the midline. It is unclear if these are new fractures or old. Patient will be written a prescription for naproxen and Flexeril and advised to follow-up with his primary care physician. He is neurologically intact. Suspect likely back strain. Patient will be written a prescription for naproxen and Flexeril. Advised to follow-up with primary care physician within next 5 to 7 days. Advised to return if worsening pain, weakness in extremities, change in bowel or bladder function, or condition should worsen anyway. Radiography Diagnostic Testing: Clinical Impression(s) from Imaging Studies Thoracic Spine X-Ray 01/20/24 12:20 IMPRESSION: Mild to moderate anterior wedging of T7 and T11 vertebrae of undetermined age and could be chronic. Electronically Signed: Tapan Mccall MD at 12:35 EDT , 2 view x-rays of chest obtained interpreted by myself as no evidence of pneumothorax or rib fracture or acute process. Three-view x-rays lumbar spine obtained interpreted by myself no evidence of fracture or dislocation. Three-view x-rays of thoracic spine obtained interpreted by myself no evidence of fracture or dislocation. Radiology felt there was mild anterior wedging of T7 and T11 age-indeterminate. Discharge Plan Triage Chief Complaint: Back ED Provider: Grover Iraheta Dx/Rx/DC Orders Clinical Impression: Back sprain, Compression fracture of thoracic vertebra Instructions: Compression Fx, ED Back Sprain/Strain Prescriptions: New cyclobenzaprine 10 mg tablet 10 mg PO TID PRN (Reason: Muscle Spasm) Qty: 20 0RF naproxen [Naprosyn] 500 mg tablet 500 mg PO BID PRN (Reason: pain) Qty: 20 0RF No Action clonazepam 0.5 MG tablet 0.5 mg PO TID prazosin 2 MG capsule 2 mg PO QHS buspirone 15 MG tablet 22.5 mg PO BID Quetiapine Fumarate [Seroquel Xr] 50 MG Tab.Sr.24h 100 mg PO DAILY Rx Instructions: 100mg x1 day, then increase to 200mg at HS prednisone 20 mg tablet 40 mg PO DAILY Qty: 10 0RF Primary Care Provider: Care Physician,No Primary Referrals: Jose Tobar MD [Med Staff - Active Staff] - 5-7 Days Print Language: [place] Disposition Disposition: Home, Self Care
--- NOTE | 2024-01-20 12:20 | RAD_ITS ---
INDICATION: back injury EXAMINATION/TECHNIQUE: X-RAY - XR Spine Thoracic 2 Views COMPARISON: No relevant prior comparison study available FINDINGS: VERTEBRAE: Moderate depression and anterior wedging of probably T11 vertebra. Mild depression of the superior endplate of T7 vertebra. Otherwise no evidence of acute fracture. No spondylolisthesis. Preservation of the normal thoracic kyphosis. No substantial scoliosis. DISCS: Disc spaces are maintained. INCLUDED CHEST/ABDOMEN: No paravertebral soft tissue swelling. No evidence of pneumothorax. RAD/Thoracic Spine 2 Views IMPRESSION: Mild to moderate anterior wedging of T7 and T11 vertebrae of undetermined age and could be chronic. Electronically Signed: Tapan Mccall MD at 12:35 EDT ,
--- NOTE | 2024-01-20 12:20 | RAD_ITS ---
INDICATION: injury EXAMINATION/TECHNIQUE: X-RAY - XR Chest 2 Views COMPARISON: Prior study dated: 07/13/2006 FINDINGS: LINES/DEVICES: None. LUNGS: No consolidation, edema or effusion. No pneumothorax. MEDIASTINUM AND CARDIOVASCULAR STRUCTURES: Cardiac silhouette not enlarged. Central airways and mediastinal contour are unremarkable. BONES AND SOFT TISSUES: Unremarkable. RAD/Chest PA and Lateral IMPRESSION: No radiographic evidence of acute cardiopulmonary disease. Electronically Signed: Tapan Mccall MD at 12:44 EDT ,
--- NOTE | 2024-01-20 12:20 | RAD_ITS ---
INDICATION: injury EXAMINATION/TECHNIQUE: X-RAY - XR Spine Lumbar 2 or 3 Views COMPARISON: No relevant prior comparison study available FINDINGS: VERTEBRAE: Preserved vertebral body height. No fracture. No spondylolisthesis. Preservation of the normal lumbar lordosis. No significant facet arthropathy. DISCS: Disc spaces are maintained. INCLUDED ABDOMEN: Included bowel gas pattern is non-obstructive. RAD/Lumbar Spine 2 or 3 Views IMPRESSION: No evidence of lumbar spinal fracture or spondylolisthesis. Electronically Signed: Tapan Mccall MD at 12:43 EDT ,
[2024-01-20 13:02] VITALS: BP 118/74; PULSE 71; RESP 16; TEMP 36.6; O2SAT 99
== END 2024-01-20 13:02 | disposition home or self-care (01) ==
PROVIDERS: Emergency Provider Emergency Medicine; Visit Provider Emergency Medicine
DX: S22.060A Wedge compression fracture of T7-T8 vertebra, initial encounter for closed fracture (principal); S22.080A Wedge compression fracture of T11-T12 vertebra, initial encounter for closed fracture; S29.012A Strain of muscle and tendon of back wall of thorax, initial encounter; S39.012A Strain of muscle, fascia and tendon of lower back, initial encounter; X58.XXXA Exposure to other specified factors, initial encounter; Y93.72 Activity, wrestling
CPT/HCPCS: 71046; 72070; 72100; 99282